=== PATIENT | female | born 1930 | race Caucasian/White ===

== ENCOUNTER 2017-05-10 00:57 | Inpatient (IN) | payer MEDICARE, BC ==
[2017-05-10] VITALS (7 sets, daily range): BP systolic 98–126; BP diastolic 65–77; PULSE 72–81; RESP 16–18; TEMP 95.7–98.1; O2SAT 94–98
[~2017-05-10] VITALS: Ht 162.6 cm; Wt 60.0 kg
[~2017-05-10 00:57] MED LIST: CART240C PO; JANT2TAB PO; LEVO50TA4 PO; METO25TA3 PO; PROP225T PO
[2017-05-10] MEDS ORDERED: SODIUM CHLORIDE 0.9% FLUSH 10 ML FLUSH IVF PRN (01:15)
[2017-05-10] MEDS ORDERED: MORPHINE SULFATE 4 MG/ML INJ IV PUSH ONE (01:15)
--- NOTE | 2017-05-10 02:02 | RADRPT ---
EXAM DATE/TIME: 05/10/2017 01:15 [facility] COMPARISON: No previous studies available for comparison. INDICATIONS : Pt slipped and fell onto right hip. MEDICAL HISTORY : Hypertension. Thyroid disease SURGICAL HISTORY : Cholecystectomy. Hysterectomy. Pacemaker. ENCOUNTER: Initial ACUITY: 1 day PAIN SCORE: 4/10 LOCATION: Bilateral chest FINDINGS: A single view of the chest demonstrates pacer leads overlying right atrium and right ventricle. Minim al basilar scarring. No focal consolidation. No effusion. No pneumothorax. Tortuous aorta. CONCLUSION: 1. Linear scarring or atelectasis in the lungs. No infiltrate or effusion. Alexandr Guzman MD on May 10, 2017 at 1:57 Board Certified Radiologist. This report was verified electronically.
--- NOTE | 2017-05-10 02:03 | RADRPT ---
EXAM DATE/TIME: 05/10/2017 01:15 [facility] COMPARISON: No previous studies available for comparison. INDICATIONS : Pt slipped and fell onto right hip. MEDICAL HISTORY : Hypertension. Thyroid disease SURGICAL HISTORY : Cholecystectomy. Hysterectomy. Pacemaker. ENCOUNTER: Initial ACUITY: 1 day PAIN SCORE: 9/10 LOCATION: Right Hip FINDINGS: Examination of the right hip was performed with AP Pelvis. There is a mildly displaced intertrochante yury fracture of proximal right femur. Osteopenia. 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 CONCLUSION: 1. Mildly displaced intertrochanteric fracture proximal right femur. Alexandr Guzman MD on May 10, 2017 at 2:01 Board Certified Radiologist. This report was verified electronically.
[2017-05-10] MEDS ORDERED: DILT-64 PO (02:06)
[2017-05-10] MEDS ORDERED: ESCI5TAB PO (02:06)
[2017-05-10 02:12] LABS: AUTOMATED NEUTROPHIL # 5.5 TH/MM3 (1.8-7.7); BASOPHIL # 0.1 TH/MM3 (0-0.2); BASOPHIL % 0.8 % (0.0-2.0); EOSINOPHIL # 0.1 TH/MM3 (0-0.4); EOSINOPHIL % 0.8 % (0.0-4.0); HEMATOCRIT 42.9 % (35.0-46.0); HEMO FLAGS DIFF FINAL; LYMPH % 13.9 % (9.0-44.0); MEAN CELL VOLUME 96.4 FL (80.0-100.0); MEAN CORPUSCULAR HEMOGLOBIN 31.5 PG (27.0-34.0); MEAN CORPUSCULAR HGB CONC 32.7 % (32.0-36.0); NEUT % 76.5 % (16.0-70.0); PLATELET COUNT 189 TH/MM3 (150-450); RED BLOOD COUNT 4.45 MIL/MM3 (4.00-5.30); RED CELL DISTRIBUTION WIDTH 14.8 % (11.6-17.2); WHITE BLOOD COUNT 7.2 TH/MM3 (4.0-11.0)
--- NOTE | 2017-05-10 02:15 | PD ---
HPI Chief Complaint: Hip Injury Time Seen by Provider: 01:01 Travel History International Travel<30 days: No Contact w/Intl Traveler<30days: No Traveled to known affect area: No History of Present Illness HPI Thin 87-year-old woman who presents to the emergency department complaining of right hip pain. She states that she slipped and fell lowering her bathroom slippers. She felt her right hip and on her bottom. She has right hip pain. She has pain with any range of motion. Denies hitting her head. No LOC. She does endorse she's on blood thinners. She is a little bit of recent indigestion. She otherwise has been feeling well and healthy. History Past Medical History Narrative Medical Pacer Heart problems Hypothyroidism Also resected dementia A. fib Tetanus Vaccination: < 5 Years Social History Alcohol Use: No Tobacco Use: No Allergies-Medications (Allergen,Severity, Reaction): Coded Allergies: aspirin (Unverified Allergy, Severe, 03/25/17) Reported Meds & Prescriptions Reported Meds & Active Scripts Active Reported Escitalopram (Escitalopram Oxalate) 5 Mg Tab 5 Mg PO DAILY Diltiazem CD 24 HR 240 Mg Caper 240 Mg PO DAILY Levothyroxine (Levothyroxine Sodium) 50 Mcg Tab 50 Mcg PO DAILY Jantoven (Warfarin) 2 Mg Tab 2 Mg PO DAILY Metoprolol Tartrate 25 Mg Tab 25 Mg PO DAILY Propafenone (Propafenone HCl) 225 Mg Tab 225 Mg PO BID Review of Systems Except as stated in HPI: all other systems reviewed are Neg Physical Exam Narrative GENERAL: Generally well-appearing 87 year-old woman, no acute distress. SKIN: Focused skin assessment warm/dry. HEAD: Atraumatic. Normocephalic. EYES: Pupils equal and round. No scleral icterus. No injection or drainage. ENT: No nasal bleeding or discharge. Mucous membranes pink and moist. NECK: Trachea midline. No JVD. CARDIOVASCULAR: Regular rate and rhythm. No murmur appreciated. RESPIRATORY: No accessory muscle use. Clear to auscultation. Breath sounds equal bilaterally. GASTROINTESTINAL: Abdomen soft, non-tender, nondistended. Hepatic and splenic margins not palpable. MUSCULOSKELETAL: Right leg is shortened and internally rotated. Pain with any range of motion. Pulses intact with intact sensation. NEUROLOGICAL: Awake and alert. No obvious cranial nerve deficits. Motor grossly within normal limits. Normal speech. Data Data Last Documented VS Vital Signs Date Time Temp Pulse Resp B/P (MAP) Pulse Ox O2 Delivery O2 Flow Rate FiO2 05/10/17 01:58 16 05/10/17 01:58 98 Room Air 05/10/17 01:00 98.1 73 106/68 (81) Orders Orders Electrocardiogram (05/10/17 01:06) Complete Blood Count With Diff (05/10/17 01:06) Comprehensive Metabolic Panel (05/10/17 01:06) Prothrombin Time / Inr (Pt) (05/10/17 01:06) Act Partial Throm Time (Ptt) (05/10/17 01:06) Urinalysis - C+S If Indicated (05/10/17 01:06) Type And Screen (05/10/17 01:06) Chest, Single Ap (05/10/17 01:06) Hip, Uni(Ap&Lat) W Ap Pelvis (05/10/17 01:06) Iv Access Insert/Monitor (05/10/17 01:06) Oximetry (05/10/17 01:06) Ecg Monitoring (05/10/17 01:06) Morphine Inj (Morphine Inj) (05/10/17 01:15) Sodium Chloride 0.9% Flush (Ns Flush) (05/10/17 01:15) Diet Npo (05/10/17 Breakfast) Admit Order (Ed Use Only) (05/10/17 ) Consult Orthopedic (05/10/17 ) Labs Laboratory Tests Test 05/10/17 01:55 White Blood Count 7.2 TH/MM3 Red Blood Count 4.45 MIL/MM3 Hemoglobin 14.0 GM/DL Hematocrit 42.9 % Mean Corpuscular Volume 96.4 FL Mean Corpuscular Hemoglobin 31.5 PG Mean Corpuscular Hemoglobin Concent 32.7 % Red Cell Distribution Width 14.8 % Platelet Count 189 TH/MM3 Mean Platelet Volume 8.0 FL Neutrophils (%) (Auto) 76.5 % Lymphocytes (%) (Auto) 13.9 % Monocytes (%) (Auto) 8.0 % Eosinophils (%) (Auto) 0.8 % Basophils (%) (Auto) 0.8 % Neutrophils # (Auto) 5.5 TH/MM3 Lymphocytes # (Auto) 1.0 TH/MM3 Monocytes # (Auto) 0.6 TH/MM3 Eosinophils # (Auto) 0.1 TH/MM3 Basophils # (Auto) 0.1 TH/MM3 CBC Comment DIFF FINAL Differential Comment Prothrombin Time 22.2 SEC Prothromb Time International Ratio 2.0 RATIO Activated Partial Thromboplast Time 28.8 SEC Blood Urea Nitrogen 24 MG/DL Creatinine 1.01 MG/DL Random Glucose 117 MG/DL Total Protein 6.2 GM/DL Albumin 3.2 GM/DL Calcium Level 8.4 MG/DL Alkaline Phosphatase 69 U/L Aspartate Amino Transf (AST/SGOT) 15 U/L Alanine Aminotransferase (ALT/SGPT) 25 U/L Total Bilirubin 0.3 MG/DL Sodium Level 142 MEQ/L Potassium Level 4.3 MEQ/L Chloride Level 108 MEQ/L Carbon Dioxide Level 30.2 MEQ/L Anion Gap 4 MEQ/L Estimat Glomerular Filtration Rate 52 ML/MIN [facility] Medical Decision Making Medical Screen Exam Complete: Yes Emergency Medical Condition: Yes Interpretation(s) LABS: CBC is unremarkable. CMP generally unremarkable, mildly elevated BUN/creatinine Coags remarkable for INR 2.0 Chest x-ray: Linear scarring or atelectasis in the lungs. No infiltrate or effusion. Right hip x-ray: Mildly displaced intertrochanteric fracture proximal right femur. Differential Diagnosis Right hip injury, right hip fracture, pelvic fracture, occult injury, other Narrative Course Medical decision making 87 year-old woman with slip and fall clinically of right hip fracture. Looks well. Denies any or head. Is probably on blood thinners. We'll check labs, x- ray, reassess. Diagnosis Primary Impression: Fracture of hip, right, closed Admitting Information Admitting Physician Requests: Admit Remy North MD May 10, 2017 02:15
[2017-05-10 02:27] LABS: APTT (PATIENT) 28.8 SEC (24.3-30.1); PROTHROMBIN TIME - PATIENT 22.2 SEC (9.8-11.6)
[2017-05-10 02:35] LABS: ALT (GPT) 25 U/L (10-53); ANION GAP 4 MEQ/L (5-15); AST (GOT) 15 U/L (15-37); BICARBONATE 30.2 MEQ/L (21.0-32.0); BLOOD UREA NITROGEN 24 MG/DL (7-18); CHLORIDE 108 MEQ/L (98-107); GLOMERULAR FILTRATION RATE 52 ML/MIN (>89); POTASSIUM 4.3 MEQ/L (3.5-5.1); SODIUM (NA) 142 MEQ/L (136-145)
[2017-05-10 02:38] LABS: ALKALINE PHOSPHATASE 69 U/L (45-117); TOTAL BILIRUBIN ADULT 0.3 MG/DL (0.2-1.0)
[2017-05-10] MEDS ORDERED: SODIUM CHLOR 0.9% 1000 ML INJ 1,000 ML IV SCH (03:14)
[2017-05-10] MEDS ORDERED: ACETAMINOPHEN/HYDROcodone 325 MG/5 MG TAB PO PRN (03:15)
[2017-05-10] MEDS ORDERED: LACTULOSE SYRUP 20 GM/30 ML CUP PO PRN (03:15)
[2017-05-10] MEDS ORDERED: SENNOSIDES 8.6 MG TAB PO PRN (03:15)
[2017-05-10] MEDS ORDERED: MAGNESIUM HYDROXIDE SUSP 30 ML CUP PO PRN (03:15)
[2017-05-10] MEDS ORDERED: BISACODYL 10 MG SUPP RECTAL PRN (03:15)
[2017-05-10] MEDS ORDERED: MORPHINE SULFATE 4 MG/ML INJ IV PUSH PRN (03:15)
[2017-05-10] MEDS ORDERED: SODIUM CHLORIDE 0.9% FLUSH 10 ML FLUSH IV FLUSH PRN (03:15)
[2017-05-10] MEDS ORDERED: ACETAMINOPHEN 325 MG TAB PO PRN (03:15)
[2017-05-10] MEDS ORDERED: ONDANSETRON HCL 4 MG/2 ML VIAL IVP PRN (03:15)
--- NOTE | 2017-05-10 03:33 | HHI.HP ---
[facility] Service [facility] Primary Care Physician Dayron Ureña M.D. Admission Diagnosis right hip fracture Diagnoses: (1) Fall Diagnosis: Principal (2) Hip fracture, right Diagnosis: Principal (3) Renal insufficiency Diagnosis: Principal (4) A-fib Diagnosis: Principal Travel History International Travel<30 Days: No Contact w/Intl Traveler <30 Da: No Traveled to Known Affected Are: No History of Present Illness This is an 87-year-old female with a PMH of HTN, A. fib on Coumadin, Hypothyroidism and Dementia who is brought to the ER by EMS secondary to complaints of right hip pain after fall. Per patient, she tripped while walking in her slippers, fell onto right buttock and had immediate complaints of right hip pain. Unable to stand due to pain. No LOC or head trauma. On arrival, BP 106/68, HR 73, O2 sat 97% on RA, Afebrile. CBC essentially unremarkable. Cranney 1.01, no previous labs for comparison. INR 2.0. CXR with no acute findings. Hip X-ray with mildly displaced intertrochanteric fracture proximal right femur. Review of Systems Except as stated in HPI: all other systems reviewed are Neg ROS: 14 point review of systems otherwise negative. Past Family Social History Past Medical History PMH: HTN, A. fib on Coumadin, Hypothyroidism and Dementia Past Surgical History PAST SURGICAL HISTORY: Cholecystectomy, Hysterectomy Allergies: Coded Allergies: aspirin (Unverified Allergy, Severe, 03/25/17) Family History PAST FAMILY HISTORY: Reviewed. No h/o DM or CAD Social History PAST SOCIAL HISTORY: Negative for alcohol, tobacco or drugs. Physical Exam Vital Signs Vital Signs Date Time Temp Pulse Resp B/P (MAP) Pulse Ox O2 Delivery O2 Flow Rate FiO2 05/10/17 01:58 16 05/10/17 01:58 16 98 Room Air 05/10/17 01:00 98.1 73 16 106/68 (81) 97 Physical Exam PE: GENERAL: Pleasant elderly white female in no acute distress. HEENT: PERRLA, EOMI. No scleral icterus or conjunctival pallor. No lid lag or facial droop. CARDIOVASCULAR: Regular rate and rhythm. No obvious murmurs to auscultation. No chest tenderness to palpation. RESPIRATORY: No obvious rhonchi or wheezing. Clear to auscultation. Breath sounds equal bilaterally. GASTROINTESTINAL: Abdomen soft, non-tender, nondistended. BS normal. MUSCULOSKELETAL: Extremities without clubbing, cyanosis, or edema. No obvious deformities. Decreased ROM of RLE due to injury. Pulses intact. NEUROLOGICAL: Awake, alert and oriented x4. No focal neurologic deficits. Moving both upper and lower extremities spontaneously. Laboratory Laboratory Tests Test 05/10/17 01:55 White Blood Count 7.2 Red Blood Count 4.45 Hemoglobin 14.0 Hematocrit 42.9 Mean Corpuscular Volume 96.4 Mean Corpuscular Hemoglobin 31.5 Mean Corpuscular Hemoglobin Concent 32.7 Red Cell Distribution Width 14.8 Platelet Count 189 Mean Platelet Volume 8.0 Neutrophils (%) (Auto) 76.5 Lymphocytes (%) (Auto) 13.9 Monocytes (%) (Auto) 8.0 Eosinophils (%) (Auto) 0.8 Basophils (%) (Auto) 0.8 Neutrophils # (Auto) 5.5 Lymphocytes # (Auto) 1.0 Monocytes # (Auto) 0.6 Eosinophils # (Auto) 0.1 Basophils # (Auto) 0.1 CBC Comment DIFF FINAL Differential Comment Prothrombin Time 22.2 Prothromb Time International Ratio 2.0 Activated Partial Thromboplast Time 28.8 Blood Urea Nitrogen 24 Creatinine 1.01 Random Glucose 117 Total Protein 6.2 Albumin 3.2 Calcium Level 8.4 Alkaline Phosphatase 69 Aspartate Amino Transf (AST/SGOT) 15 Alanine Aminotransferase (ALT/SGPT) 25 Total Bilirubin 0.3 Sodium Level 142 Potassium Level 4.3 Chloride Level 108 Carbon Dioxide Level 30.2 Anion Gap 4 Estimat Glomerular Filtration Rate 52 Result Diagram: 05/10/1715405/10/17154 Caprini VTE Risk Assessment Caprini VTE Risk Assessment: Mod/High Risk (score >= 2) Caprini Risk Assessment Model Point Value = 1 Point Value = 2 Point Value = 3 Point Value = 5 Age 41-60 Minor surgery BMI > 25 kg/m2 Swollen legs Varicose veins or History of unexplained or recurrent spontaneous Oral contraceptives or hormone replacement Sepsis (< 1 month) Serious lung disease, including pneumonia (< 1 month) Abnormal pulmonary function Acute myocardial infarction Congestive heart failure (< 1 month) History of inflammatory bowel disease Medical patient at bed rest Age 61-74 Arthroscopic surgery Major open surgery (> 45 min) Laparoscopic surgery (> 45 min) Malignancy Confined to bed (> 72 hours) Immobilizing plaster cast Central venous access Age >= 75 History of VTE Family history of VTE Factor V Leiden Prothrombin [id number] Lupus anticoagulant Anticardiolipin antibodies Elevated serum homocysteine Heparin-induced thrombocytopenia Other congenital or acquired thrombophilia Stroke (< 1 month) Elective arthroplasty Hip, pelvis, or leg fracture Acute spinal cord injury (< 1 month) Prophylaxis Regimen Total Risk Factor Score Risk Level Prophylaxis Regimen 0-1 Low Early ambulation 2 Moderate Order ONE of the following: *Sequential Compression Device (SCD) *Heparin 5000 units SQ BID 3-4 Higher Order ONE of the following medications: *Heparin 5000 units SQ TID *Enoxaparin/Lovenox 40 mg SQ daily (WT < 150 kg, CrCl > 30 mL/min) *Enoxaparin/Lovenox 30 mg SQ daily (WT < 150 kg, CrCl > 10-29 mL/min) *Enoxaparin/Lovenox 30 mg SQ BID (WT < 150 kg, CrCl > 30 mL/min) AND/OR *Sequential Compression Device (SCD) 5 or more Highest Order ONE of the following medications: *Heparin 5000 units SQ TID (Preferred with Epidurals) *Enoxaparin/Lovenox 40 mg SQ daily (WT < 150 kg, CrCl > 30 mL/min) *Enoxaparin/Lovenox 30 mg SQ daily (WT < 150 kg, CrCl > 10-29 mL/min) *Enoxaparin/Lovenox 30 mg SQ BID (WT < 150 kg, CrCl > 30 mL/min) AND *Sequential Compression Device (SCD) Assessment and Plan Problem List: (1) Fall ICD Code: W19.XXXA - Unspecified fall, initial encounter (2) Hip fracture, right ICD Code: S72.001A - Fracture of unspecified part of neck of right femur, initial encounter for closed fracture (3) Renal insufficiency ICD Code: N28.9 - Disorder of kidney and ureter, unspecified (4) A-fib ICD Code: I48.91 - Unspecified atrial fibrillation Assessment and Plan A/P: 1. Fall: s/p mechanical trip and fall while walking with slippers, no LOC or head trauma reported. 2. Right Hip Fx: secondary to above. Hip X-ray w/ mildly displaced intertrochanteric fracture proximal right femur, images reviewed by me. Ortho consult placed. NPO, IVF, analgesics/antiemetics as needed. 3. Renal Insufficiency: Creatinine 1.01, no previous labs for comparison. IVF , repeat labs in am. 4. A-fib: Chronic. On Coumadin. INR therapeutic at 2.0. Hold Coumadin for surgical intervention, repeat INR. Resume home Propafenone/Metoprolol/Diltiazem 5. DVT Prophylaxis: Resume anticoagulation post op 6. Social work for d/c planning as needed. 7. Case discussed w/ ER physician at length. Physician Certification 2 Midnight Certification Type: Admission for Inpatient Services Order for Inpatient Services The services are ordered in accordance with Medicare regulations or non- Medicare payer requirements, as applicable. In the case of services not specified as inpatient-only, they are appropriately provided as inpatient services in accordance with the 2-midnight benchmark. Estimated LOS (days): 2 days is the estimated time the patient will need to remain in the hospital, assuming treatment plan goals are met and no additional complications. Post-Hospital Plan: Not yet determined Yvette Melgar MD May 10, 2017 03:33
[2017-05-10] MEDS: LEVOTHYROXINE SODIUM 50 MCG TAB PO SCH (05:01)
[2017-05-10] MEDS ORDERED: LACTATED RINGER'S 1000 ML IV PRN (05:15)
[2017-05-10] MEDS ORDERED: POVIDONE IODINE 5% (ANTISEPSIS KIT) 4 APPLICATIONS EACH NARE PRN (05:15)
[2017-05-10] MEDS ORDERED: SODIUM CHLORID 0.9% 500 ML IV PRN (05:15)
[2017-05-10] MEDS ORDERED: CHLORHEXIDINE GLUCONATE 2 % 1 PACK (2 CLOTHS) TOPICAL PRN (05:15)
[2017-05-10] MEDS ORDERED: INSULIN HUMAN REGULAR 1,000 UNITS/10 ML VIAL SQ PRN (05:15)
--- NOTE | 2017-05-10 08:21 | EKG ---
Date Performed: 05/10/2017 Time Performed: 03:46:29 PTAGE: 87 years EKG: POSSIBLE ATRIAL PACED RHYTHM WITH LONG AV DELAY BORDERLINE RIGHT AXIS DEVIATION LOW QRS VOL TAGE INCOMPLETE RIGHT BUNDLE BRANCH BLOCK NONSPECIFIC T-WAVE ABNORMALITY ABNORMAL ECG PREVIOUS TRACING : 07/02/2016 09.08 No significant change from previous tracing noted. DOCTOR: Ruddy Palacios Interpretating Date/Time 05/10/2017 08:19:31
[2017-05-10] MEDS: METOPROLOL TARTRATE 25 MG TAB PO SCH (09:00)
[2017-05-10] MEDS: PROPAFENONE HCL 150 MG TAB PO SCH ×2 (09:00→22:02)
[2017-05-10] MEDS: ESCITALOPRAM OXALATE 10 MG TAB PO SCH (09:00)
[2017-05-10] MEDS: DOCUSATE SODIUM 50 MG/SENNA 8.6 MG TAB PO SCH ×2 (09:00→22:02)
[2017-05-10] MEDS: DILTIAZEM-CD 240 MG CAP ER PO SCH (09:00)
[2017-05-10] MEDS: SODIUM CHLORIDE 0.9% FLUSH 10 ML FLUSH IV FLUSH SCH ×2 (09:00→22:02)
[2017-05-10] MEDS ORDERED: RESP: ALBUTEROL 2.5 MG/3 ML NEB (PRN) ONE (11:02)
[2017-05-10] MEDS ORDERED: ACETAMINOPHEN 1000 MG/100 ML 0 ML IV ONE (11:20)
[2017-05-10] MEDS ORDERED: GENTAMICIN SULFATE 80 MG/2 ML VIAL ONE (11:36)
[2017-05-10] MEDS ORDERED: ceFAZolin 2 GM PREMIX 50 ML ONE (11:36)
[2017-05-10] MEDS ORDERED: ePHEDrine/NS 25 MG/5 ML SYR IV ONE (12:00)
[2017-05-10] MEDS ORDERED: LIDOCAINE HCL 1% PF 5 ML AMPULE OTHER ONE (12:00)
[2017-05-10] MEDS ORDERED: PROPOFOL 200 MG/20 ML AMP IV ONE (12:00)
[2017-05-10] MEDS ORDERED: PHENYLEPH/NS 1000 MCG/10 ML SYR IV ONE (12:00)
--- NOTE | 2017-05-10 13:19 | RADRPT ---
EXAM DATE/TIME: 05/10/2017 12:48 [facility] COMPARISON: HIP RIGHT (AP&LAT 2/3VWS) W AP PELVIS, May 10, 2017, 1:15. INDICATIONS : ORIF rt hip. MEDICAL HISTORY : None. SURGICAL HISTORY : None. ENCOUNTER: Subsequent ACUITY: 1 day PAIN SCORE: Non-responsive. LOCATION: Right Hip FINDINGS: 4 intraoperative fluoroscopic hold images are submitted. Interval intertrochanteric and intramedullar y heriberto fixation of left hip with intertrochanteric fracture. There is near-anatomic alignment with wel l-positioned hardware. No additional new significant fractures. CONCLUSION: 1. Interval right hip ORIF, as above. Larry Dudley MD on May 10, 2017 at 13:15 Board Certified Radiologist. This report was verified electronically.
[2017-05-10] MEDS ORDERED: DO NOT ADM ANY ANTICOAGULANT DRUGS PRN (13:24)
[2017-05-10] MEDS ORDERED: NALOXONE HCL 0.4 MG/ML AMP IV PUSH PRN (14:00)
[2017-05-10] MEDS ORDERED: Post-op Orders (for Pharmacy) MISC XX ONE (14:00)
[2017-05-10] MEDS ORDERED: MISCELLANEOUS NURSING INFORMATION XX PRN (14:00)
[2017-05-10] MEDS ORDERED: MISCELLANEOUS PHARMACY INFORMATION XX ONE (14:00)
[2017-05-10] MEDS ORDERED: diphenhydrAMINE HCL 25 MG CAP PO PRN (14:00)
[2017-05-10] MEDS ORDERED: HYDROmorphone HCL PCA 6 MG/30 ML IV SCH (14:00)
--- NOTE | 2017-05-10 14:02 | PD.OP ---
Operative Report Date of Surgery: May 10, 2017 Preoperative Diagnosis: (1) Fracture of hip, right, closed Postoperative Diagnosis: (1) Intertrochanteric fracture of right femur Procedure: Right Femur Open Reduction Internal Fixation of Intertrochanteric Nail Surgeon: Dr. Marco A Morley Broadcast Maintenance Technician(s): ALICIA Jean Operation and Findings: See Dictation Rick Hughes May 10, 2017 14:02
[2017-05-10] MEDS: DEXT 5%-NACL 0.45% 1000 ML INJ 1,000 ML IV SCH (14:15)
--- NOTE | 2017-05-10 14:15 | MB ---
cc: DENIA ZHANG DATE OF CONSULTATION 05/10/17 REASON FOR CONSULTATION Requested to evaluate right hip intertrochanteric fracture. HISTORY OF PRESENT ILLNESS Idalmis Patel is an 87-year-old female who lives with her son and sustained a fall yesterday and injured her right hip. She was brought to [facility] where she was diagnosed with intertrochanteric fracture involving the right hip. She was admitted to medical service, a consultation placed with the undersigned. PAST MEDICAL HISTORY The patient's past medical history is significant for atrial fibrillation for which she takes Coumadin. She has hypothyroidism, hypertension and is reported to have dementia but she communicates quite well on today's examination. The patient had INR woodworking shop hand which showed INR 2.0. PAST SURGICAL HISTORY Her past surgical history is significant for cholecystectomy, hysterectomy. ALLERGIES SHE HAS ALLERGY TO ASPIRIN. SOCIAL HISTORY She denies alcohol, tobacco and drugs. She lives with her son who is at the bedside. PHYSICAL EXAMINATION GENERAL: The patient is alert, oriented, appropriate, has a good understanding of her condition and asked appropriate questions. Her son reports that she normally ambulates with the use of a walker. DIRECTED EXAMINATION: The patient has swelling and tenderness to palpation about the right hip. No ecchymosis noted. No significant effusion on her knee. Her calves are soft. Noy sign is negative. Her distal pulses 2+. Her distal motor, sensory neurologic examination is intact. The left lower extremity and bilateral upper extremity examination is benign. IMAGING STUDIES X-rays were reviewed which show comminuted right hip intertrochanteric fracture. ASSESSMENT Right hip comminuted intertrochanteric fracture. MEDICAL DECISION MAKING Her condition was discussed. The options of treatment were discussed. The recommendation surgical repair including discussion risk of bleeding, blood loss, need for blood transfusion, the risk of nerve damage, the risk of infection, anesthetic complications, medical complication, unforeseen possible complications. We then went on to discuss the option of timing of the surgery. Current INR is 2.0 so we talked about doing the surgery now versus doing the surgery tomorrow. The advantage of doing the surgery now is that if we stabilize the bone then it allows the clotting to be more effective and we should be able to begin to mobilize her and this should help control her pain as well. We talked about this alternative or waiting a day or two until her INR was a little bit lower. She and her son asked appropriate questions. All of their questions were answered. Informed consent was obtained and they do wish to proceed with the surgery today. All questions answered. MD NITHYA Brooks/ARTURO /10:23 AM /1:58 PM
[2017-05-10] MEDS: PCA - TOTAL MG DILAUDID DELIVERED PER SHIFT OTHER SCH ×2 (15:00→22:00)
--- NOTE | 2017-05-10 21:59 | MP ---
cc: DENIA ZHANG DATE OF SURGERY 05/10/17 PREOPERATIVE DIAGNOSIS Right hip intertrochanteric fracture. POSTOPERATIVE DIAGNOSIS Right hip intertrochanteric fracture. PROCEDURE Right hip open reduction internal fixation using short trochanteric nail ANESTHESIA General SURGEON Jorge Zhang MD DISHWASHER BUSSER SURGEON ALICIA Liz ESTIMATED BLOOD LOSS 100 mL DRAINS None SPECIMEN None. COMPLICATIONS None known. Idalmis Patel is an 87 year old female who nonsustained a fall And fractured the right hip. She is indicated for surgical repair. Risks and benefits thoroughly discussed with the patient's son. Informed consent was obtained. The first calender worker Rick Ellen is advanced registered nurse practitioner. His skill set was medically necessary for the performance of the operation. PROCEDURE IN DETAIL She was placed under general anesthetic. She was placed on a well-padded fracture table. The right hip has significant arthritis and, therefore, was placed straight and lowered and well-padded and fixated at this position and the right hip was evaluated fluoroscopically and traction and rotation used to align the fracture site and we proceeded to prep and drape in usual sterile fashion. IV antibiotics were given. Time-out was completed. We proceeded with incision superior trochanter, tied to the tip of the trochanter, good positioning AP and lateral plane then proceeded to over ream this and then our selected nail 11 mm x 130 was then applied into position. We did notice on the lateral view some flexion of fracture site and accessory portal was made so that we used a ball point pressure to help with the overall reduction and help us while we proceeded with the operation and proceeded with the proximal locking jig and guide pin, reaming. Proceeded to place our flange nail with excellent fixation. Then proceeded with placing our distal locking screw, hard copy AP and lateral radiographs showed the final result. We irrigated out with copious amounts of irrigation. Proceed to close in layers of absorbable sutures, subcuticular on the skin. Steri-Strips applied. Sterile dressing applied. The patient was awaken and returned to recovery room in stable condition. MD NITHYA Brooks/ /2:15 PM /9:45 PM
[2017-05-11 00:01] VITALS: BP 126/69; PULSE 76; RESP 16; TEMP 99.6; O2SAT 95
[2017-05-11] MEDS: DEXT 5%-NACL 0.45% 1000 ML INJ 1,000 ML IV SCH ×2 (00:36→12:05)
[2017-05-11 04:00] VITALS: BP 109/63; PULSE 74; RESP 16; TEMP 99; O2SAT 95
[2017-05-11 05:27] LABS: AUTOMATED NEUTROPHIL # 5.1 TH/MM3 (1.8-7.7); BASOPHIL % 0.6 % (0.0-2.0); EOSINOPHIL % 0.5 % (0.0-4.0); HEMATOCRIT 31.9 % (35.0-46.0); HEMO FLAGS DIFF FINAL; LYMPH % 14.7 % (9.0-44.0); MEAN CELL VOLUME 96.4 FL (80.0-100.0); MEAN CORPUSCULAR HEMOGLOBIN 31.4 PG (27.0-34.0); MEAN CORPUSCULAR HGB CONC 32.5 % (32.0-36.0); MONO % 13.1 % (0.0-8.0); NEUT % 71.1 % (16.0-70.0); PLATELET COUNT 158 TH/MM3 (150-450); RED BLOOD COUNT 3.31 MIL/MM3 (4.00-5.30); RED CELL DISTRIBUTION WIDTH 14.5 % (11.6-17.2); WHITE BLOOD COUNT 7.1 TH/MM3 (4.0-11.0)
[2017-05-11 05:38] LABS: PROTHROMBIN TIME - PATIENT 34.5 SEC (9.8-11.6)
[2017-05-11] MEDS: LEVOTHYROXINE SODIUM 50 MCG TAB PO SCH (05:44)
[2017-05-11] MEDS: PCA - TOTAL MG DILAUDID DELIVERED PER SHIFT OTHER SCH ×3 (06:00→22:00)
[2017-05-11 06:06] LABS: BICARBONATE 25.4 MEQ/L (21.0-32.0); CALCIUM-PROTEIN CORRECTED 8.6 MG/DL (8.5-10.1); POTASSIUM 3.8 MEQ/L (3.5-5.1); TOTAL BILIRUBIN ADULT 0.5 MG/DL (0.2-1.0)
[2017-05-11 08:00] VITALS: BP 109/62; PULSE 73; RESP 18; TEMP 98.3; O2SAT 94
[2017-05-11] MEDS: METOPROLOL TARTRATE 25 MG TAB PO SCH (09:00)
[2017-05-11] MEDS: PROPAFENONE HCL 150 MG TAB PO SCH ×2 (09:00→21:00)
[2017-05-11] MEDS: SODIUM CHLORIDE 0.9% FLUSH 10 ML FLUSH IV FLUSH SCH ×2 (09:00→21:00)
[2017-05-11] MEDS: ESCITALOPRAM OXALATE 10 MG TAB PO SCH (09:00)
[2017-05-11] MEDS: DILTIAZEM-CD 240 MG CAP ER PO SCH (09:00)
[2017-05-11] MEDS: DOCUSATE SODIUM 50 MG/SENNA 8.6 MG TAB PO SCH ×2 (09:00→21:00)
--- NOTE | 2017-05-11 10:16 | PD.ORT.PN ---
Subjective Subjective Remarks Pain comfortable. Pain controlled. Family at bedside. OOB sitting in recliner. Objective Vitals Vital Signs Date Time Temp Pulse Resp B/P (MAP) Pulse Ox O2 Delivery O2 Flow Rate FiO2 05/11/17 08:00 98.3 73 18 109/62 (78) 94 05/11/17 06:00 16 05/11/17 04:00 99.0 74 16 109/63 (78) 95 05/11/17 00:01 99.6 76 16 126/69 (88) 95 05/10/17 22:00 18 05/10/17 20:02 97.4 75 16 123/77 (92) 95 05/10/17 20:00 18 05/10/17 16:00 95.7 81 18 126/72 (90) 95 05/10/17 15:25 15 05/10/17 13:24 97.4 75 14 141/77 (98) 100 Nasal Cannula 4 I/O 05/10/17 05/10/17 05/10/17 05/11/17 05/11/17 05/11/17 07:00 15:00 23:00 07:00 15:00 23:00 Intake Total 0 ml 640 ml 767 ml 1200 ml Output Total 150 ml 250 ml 250 ml Balance 0 ml 490 ml 517 ml 950 ml Intake Oral 0 ml 240 ml 240 ml 0 ml IV Total 400 ml 527 ml 1200 ml Output Urine Total 150 ml 250 ml 250 ml # Voids 0 # Bowel Movements 0 0 0 Result Diagram: 05/11/17 0345 05/11/17 0345 Other Results Laboratory Tests Test 05/11/17 03:45 Prothromb Time International Ratio 3.0 RATIO Prothrombin Time 34.5 SEC (9.8-11.6) Procedures Right Femur Open Reduction Internal Fixation of Intertrochanteric Nail Objective Remarks Right hip dressings C/D/I thigh swelling calves soft negative Noy's NVI Assessment & Plan Assessment and Plan POD #1 Right Femur Open Reduction Internal Fixation of Intertrochanteric Nail Medical management Pain management - ATOMIC WELDER DVT prophylaxis - Lovenox No touch dressing Physical therapy - weight bearing as tolerated D/C planning - anticipating SNF Monitor Rick Hughes May 11, 2017 10:15
[2017-05-11] MEDS ORDERED: ENOXAPARIN SODIUM 40 MG/0.4 ML SYRINGE SQ SCH (12:00)
[2017-05-11] MEDS: ACETAMINOPHEN/HYDROcodone 325 MG/5 MG TAB PO PRN ×2 (12:04→17:18)
--- NOTE | 2017-05-11 13:50 | HHI.PR ---
Subjective Remarks The patient denies chest pain or shortness of breath. Pain seems to be controlled. The patient is somnolent. Vital signs stable Objective Vitals Vital Signs Date Time Temp Pulse Resp B/P (MAP) Pulse Ox O2 Delivery O2 Flow Rate FiO2 05/11/17 08:00 98.3 73 18 109/62 (78) 94 05/11/17 06:00 16 05/11/17 04:00 99.0 74 16 109/63 (78) 95 05/11/17 00:01 99.6 76 16 126/69 (88) 95 05/10/17 22:00 18 05/10/17 20:02 97.4 75 16 123/77 (92) 95 05/10/17 20:00 18 05/10/17 16:00 95.7 81 18 126/72 (90) 95 05/10/17 15:25 15 I/O 05/10/17 05/10/17 05/10/17 05/11/17 05/11/17 05/11/17 07:00 15:00 23:00 07:00 15:00 23:00 Intake Total 0 ml 640 ml 767 ml 1200 ml Output Total 150 ml 250 ml 250 ml Balance 0 ml 490 ml 517 ml 950 ml Intake Oral 0 ml 240 ml 240 ml 0 ml IV Total 400 ml 527 ml 1200 ml Output Urine Total 150 ml 250 ml 250 ml # Voids 0 # Bowel Movements 0 0 0 Result Diagram: 05/11/17 0345 05/11/17344 Imaging Last Impressions Hip and Pelvis X-Ray 05/10/17105 Signed Impressions: Service Date/Time: Wednesday, May 10, 2017 01:15 - CONCLUSION: 1. Mildly displaced intertrochanteric fracture proximal right femur. Alexandr Guzman MD Chest X-Ray 05/10/17105 Signed Impressions: Service Date/Time: Wednesday, May 10, 2017 01:15 - CONCLUSION: 1. Linear scarring or atelectasis in the lungs. No infiltrate or effusion. Alexandr Guzman MD Hip X-Ray 05/10/17 0000 Signed Impressions: Service Date/Time: Wednesday, May 10, 2017 12:48 - CONCLUSION: 1. Interval right hip ORIF, as above. Larry Dudley MD Objective Remarks GENERAL: Pleasant elderly white female in no acute distress, seems somnolent. HEENT: PERRLA, EOMI. No scleral icterus or conjunctival pallor. No lid lag or facial droop. CARDIOVASCULAR: Regular rate and rhythm. No obvious murmurs to auscultation. No chest tenderness to palpation. RESPIRATORY: No obvious rhonchi or wheezing. Clear to auscultation. Breath sounds equal bilaterally. GASTROINTESTINAL: Abdomen soft, non-tender, nondistended. BS normal. MUSCULOSKELETAL: Extremities without clubbing, cyanosis, or edema. No obvious deformities. Decreased ROM of RLE due to injury. Pulses intact. dressing in right thigh is C/D/I, thigh is swollen but here is no erythema or hematoma noted NEUROLOGICAL: Awake, alert and oriented x4. No focal neurologic deficits. Moving both upper and lower extremities spontaneously. Procedures Right hip open reduction internal fixation using short trochanteric nail Medications and IVs Current Medications Medications (Trade) Dose Ordered Sig/Trina Route Start Time Stop Time Status Last Admin (NS Flush) 2 ml UNSCH PRN IV FLUSH 05/10/17 03:15 (NS Flush) 2 ml BID IV FLUSH 05/10/17 09:00 05/11/17 09:00 (Zofran Inj) 4 mg Q6H PRN IVP 05/10/17 03:15 (Morphine Inj) 1 mg Q3H PRN IV PUSH 05/10/17 03:15 05/10/17 08:40 (Albertina-Colace) 1 tab BID PO 05/10/17 09:00 05/11/17 09:00 (Milk Of Magnesia Liq) 30 ml Q12H PRN PO 05/10/17 03:15 (Senokot) 17.2 mg Q12H PRN PO 05/10/17 03:15 (Dulcolax Supp) 10 mg DAILY PRN RECTAL 05/10/17 03:15 (Lactulose Liq) 30 ml DAILY PRN PO 05/10/17 03:15 (Cardizem Cd) 240 mg DAILY PO 05/10/17 09:00 05/11/17 09:00 (Lexapro) 5 mg DAILY PO 05/10/17 09:00 05/11/17 09:00 (Synthroid) 50 mcg DAILY@0700 PO 05/10/17 07:00 05/11/17 05:44 (Lopressor) 25 mg DAILY PO 05/10/17 09:00 05/11/17 09:00 (Rythmol) 225 mg BID PO 05/10/17 09:00 05/11/17 09:00 Lactated Ringer's 1,000 ml @ 30 mls/hr Q24H PRN IV 05/10/17 05:15 05/13/17 05:14 Sodium Chloride 500 ml @ 30 mls/hr [id number] PRN IV 05/10/17 05:15 05/13/17 05:14 (Betadine 5% Antisepsis Kit) 1 applic LETTERPRESS SETTER PRN EACH NARE 05/10/17 05:15 05/13/17 05:14 (Chlorhexidine 2% Cloth) 3 pack LETTERPRESS SETTER PRN TOPICAL 05/10/17 05:15 05/13/17 05:14 (NovoLIN R INJ) See Protocol Table ... LETTERPRESS SETTER PRN SQ 05/10/17 05:15 05/13/17 05:14 Dextrose/Sodium Chloride 1,000 ml @ 100 mls/hr Q10H IV 05/10/17 15:00 05/11/17 12:05 Miscellaneous Information UNSCH PRN XX 05/10/17 14:00 ([place] 5-325 Mg) 1 tab Q4H PRN PO 05/10/17 14:00 05/11/17 12:04 (Benadryl) 25 mg Q6H PRN PO 05/10/17 14:00 (Narcan Inj) 0.4 mg UNSCH PRN IV PUSH 05/10/17 14:00 (Dilaudid BIAZZI NITRATOR OPERATOR Inj) 6 mg UNSCH IV 05/10/17 14:00 05/10/17 15:25 BIAZZI NITRATOR OPERATOR Dosage Infused (Pha) 1 Q8HR OTHER 05/10/17 15:00 05/11/17 06:00 Pharmacy Profile Note 0 ml @ 0 mls/hr UNSCH OTHER 05/11/17 13:15 A/P Problem List: (1) Fall ICD Code: W19.XXXA - Unspecified fall, initial encounter (2) Hip fracture, right ICD Code: S72.001A - Fracture of unspecified part of neck of right femur, initial encounter for closed fracture (3) Renal insufficiency ICD Code: N28.9 - Disorder of kidney and ureter, unspecified (4) A-fib ICD Code: I48.91 - Unspecified atrial fibrillation Assessment and Plan 1. Fall: s/p mechanical trip and fall while walking with slippers, no LOC or head trauma reported. 2. Right Hip Fx: secondary to above. Hip X-ray w/ mildly displaced intertrochanteric fracture proximal right femur, images reviewed by me. Ortho consult placed. NPO, IVF, analgesics/antiemetics as needed. 05/11 the patient is status post operative day one of right femur open reduction internal fixation of intertrochanteric nail. BIAZZI NITRATOR OPERATOR pump for pain management as per orthopedic surgery. 3. Renal Insufficiency: Creatinine 1.01, no previous labs for comparison. IVF , repeat labs in am. 05/11 creatinine is much improved down from 1.01-0.88. 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 A-fib: Chronic. On Coumadin. INR therapeutic at 2.0. Hold Coumadin for surgical intervention, repeat INR. Resume home Propafenone/Metoprolol/Diltiazem 05/11 INR 3.0. Will consult pharmacy to help in dosing. Goal INR is 2-3. 5. DVT Prophylaxis: Patient with a therapeutic INR. Continue Coumadin as per pharmacy recommendations. 6. Anemia: Likely combination of acute postop anemia and due to IV fluid hydration. Continue to monitor CBC, there is no indication for confusion now. 6. Social work for d/c planning as needed. Discharge Planning Continue to monitor in the orthopedic floor. Discharge pending orthopedic surgery clearance. Blayne Staton MD May 11, 2017 13:50
[2017-05-11 16:00] VITALS: BP 111/59; PULSE 70; RESP 18; TEMP 97.3; O2SAT 96
[2017-05-11] MEDS ORDERED: WARFARIN SOD 2 MG TAB PO SCH (16:00)
[2017-05-11 18:10] VITALS: O2SAT 96
[2017-05-11 20:00] VITALS: BP 109/58; PULSE 70; RESP 16; TEMP 97; O2SAT 94
[2017-05-12] VITALS (8 sets, daily range): BP systolic 82–120; BP diastolic 52–63; PULSE 70–73; RESP 16–18; TEMP 97.5–99; O2SAT 92–95
[2017-05-12 01:50] LABS: BLOOD, URINE LARGE (NEG); GLUCOSE,URINE NEG (NEG); KETONE, URINE TRACE mg/dL (NEG); MUCUS URINE FEW /lpf (OCC); NITRITE,URINE NEG (NEG)
[2017-05-12 01:51] LABS: COMMENT (UR) CATH-CULTURE IND; CULTURE IF INDICATED CATH CULTURE IND; URINE COLOR RED (YELLW/STRAW)
[2017-05-12] MEDS: LEVOTHYROXINE SODIUM 50 MCG TAB PO SCH (05:25)
[2017-05-12] MEDS: DEXT 5%-NACL 0.45% 1000 ML INJ 1,000 ML IV SCH (05:25)
[2017-05-12] MEDS: PCA - TOTAL MG DILAUDID DELIVERED PER SHIFT OTHER SCH ×3 (06:00→23:25)
[2017-05-12 07:03] LABS: AUTOMATED NEUTROPHIL # 6.5 TH/MM3 (1.8-7.7); BASOPHIL % 0.6 % (0.0-2.0); EOSINOPHIL % 0.5 % (0.0-4.0); HEMATOCRIT 28.5 % (35.0-46.0); HEMO FLAGS DIFF FINAL; LYMPH % 11.6 % (9.0-44.0); MEAN CELL VOLUME 96.8 FL (80.0-100.0); MEAN CORPUSCULAR HEMOGLOBIN 32.4 PG (27.0-34.0); MEAN CORPUSCULAR HGB CONC 33.5 % (32.0-36.0); MONO % 10.7 % (0.0-8.0); NEUT % 76.6 % (16.0-70.0); PLATELET COUNT 146 TH/MM3 (150-450); RED BLOOD COUNT 2.94 MIL/MM3 (4.00-5.30); RED CELL DISTRIBUTION WIDTH 14.4 % (11.6-17.2); WHITE BLOOD COUNT 8.5 TH/MM3 (4.0-11.0)
[2017-05-12 07:11] LABS: INTERNATIONAL NORMALIZED RATIO 2.6 RATIO; PROTHROMBIN TIME - PATIENT 30.5 SEC (9.8-11.6)
[2017-05-12 07:33] LABS: CALCIUM-PROTEIN CORRECTED 8.5 MG/DL (8.5-10.1); MAGNESIUM 1.9 MG/DL (1.5-2.5); POTASSIUM 3.9 MEQ/L (3.5-5.1); TOTAL BILIRUBIN ADULT 0.7 MG/DL (0.2-1.0)
[2017-05-12] MEDS: ESCITALOPRAM OXALATE 10 MG TAB PO SCH (08:47)
[2017-05-12] MEDS: DOCUSATE SODIUM 50 MG/SENNA 8.6 MG TAB PO SCH ×2 (08:47→23:23)
[2017-05-12] MEDS: DILTIAZEM-CD 240 MG CAP ER PO SCH (08:47)
[2017-05-12] MEDS: METOPROLOL TARTRATE 25 MG TAB PO SCH (08:47)
[2017-05-12] MEDS: PROPAFENONE HCL 150 MG TAB PO SCH ×2 (08:47→23:23)
[2017-05-12] MEDS: SODIUM CHLORIDE 0.9% FLUSH 10 ML FLUSH IV FLUSH SCH ×2 (08:47→23:24)
--- NOTE | 2017-05-12 11:05 | HHI.PR ---
Subjective Remarks Patient states she does not have much pain Son at bedside worried that her mother has not voided yet hemoglobin slightly lower - no reports of bleeding Objective Vitals Vital Signs Date Time Temp Pulse Resp B/P (MAP) Pulse Ox O2 Delivery O2 Flow Rate FiO2 05/12/17 08:00 98.6 73 18 120/61 (80) 93 05/12/17 06:06 18 05/12/17 06:00 18 05/12/17 04:00 97.5 71 16 118/63 (81) 94 05/12/17 00:00 97.9 71 16 108/63 (78) 95 05/12/17 00:00 18 05/11/17 22:00 18 05/11/17 20:00 97.0 70 16 109/58 (75) 94 05/11/17 18:18 18 05/11/17 18:10 96 05/11/17 16:00 97.3 70 18 111/59 (76) 96 05/11/17 14:00 16 I/O 05/11/17 05/11/17 05/11/17 05/12/17 05/12/17 05/12/17 07:00 15:00 23:00 07:00 15:00 23:00 Intake Total 1200 ml 220 ml 985 ml 120 ml Output Total 250 ml 300 ml Balance 950 ml -80 ml 985 ml 120 ml Intake Oral 0 ml 120 ml 120 ml 120 ml IV Total 1200 ml 100 ml 865 ml Output Urine Total 250 ml 300 ml Bladder Scan Volume Amount 178 ml # Voids 0 0 # Bowel Movements 0 0 0 0 Result Diagram: 05/12/17 0548 05/12/17 0548 Imaging Last Impressions Hip and Pelvis X-Ray 05/10/17105 Signed Impressions: Service Date/Time: Wednesday, May 10, 2017 01:15 - CONCLUSION: 1. Mildly displaced intertrochanteric fracture proximal right femur. Alexandr Guzman MD Chest X-Ray 05/10/17105 Signed Impressions: Service Date/Time: Wednesday, May 10, 2017 01:15 - CONCLUSION: 1. Linear scarring or atelectasis in the lungs. No infiltrate or effusion. Alexandr Guzman MD Hip X-Ray 05/10/17 0000 Signed Impressions: Service Date/Time: Saturday, May 10, 2017 12:48 - CONCLUSION: 1. Interval right hip ORIF, as above. Larry Dudley MD Objective Remarks GENERAL: Pleasant elderly white female in no acute distress, awake and alert. HEENT: PERRLA, EOMI. No scleral icterus or conjunctival pallor. No lid lag or facial droop. Hard of hearing. CARDIOVASCULAR: Regular rate and rhythm. No obvious murmurs to auscultation. No chest tenderness to palpation. RESPIRATORY: No obvious rhonchi or wheezing. Clear to auscultation. Breath sounds equal bilaterally. GASTROINTESTINAL: Abdomen soft, non-tender, nondistended. BS normal. Distended urinary bladder up to below the umbilicus. MUSCULOSKELETAL: Extremities without clubbing, cyanosis, or edema. No obvious deformities. Decreased ROM of RLE due to injury. Pulses intact. dressing in right thigh is C/D/I, thigh is swollen but here is no erythema or hematoma noted NEUROLOGICAL: Awake, alert and oriented x4. No focal neurologic deficits. Moving both upper and lower extremities spontaneously. Procedures Right hip open reduction internal fixation using short trochanteric nail Medications and IVs Current Medications Medications (Trade) Dose Ordered Sig/Trina Route Start Time Stop Time Status Last Admin (NS Flush) 2 ml UNSCH PRN IV FLUSH 05/10/17 03:15 (NS Flush) 2 ml BID IV FLUSH 05/10/17 09:00 05/11/17 09:00 (Zofran Inj) 4 mg Q6H PRN IVP 05/10/17 03:15 (Morphine Inj) 1 mg Q3H PRN IV PUSH 05/10/17 03:15 05/10/17 08:40 (Albertina-Colace) 1 tab BID PO 05/10/17 09:00 05/12/17 08:47 (Milk Of Magnesia Liq) 30 ml Q12H PRN PO 05/10/17 03:15 (Senokot) 17.2 mg Q12H PRN PO 05/10/17 03:15 (Dulcolax Supp) 10 mg DAILY PRN RECTAL 05/10/17 03:15 (Lactulose Liq) 30 ml DAILY PRN PO 05/10/17 03:15 (Cardizem Cd) 240 mg DAILY PO 05/10/17 09:00 05/12/17 08:47 (Lexapro) 5 mg DAILY PO 05/10/17 09:00 05/12/17 08:47 (Synthroid) 50 mcg DAILY@0700 PO 05/10/17 07:00 05/12/17 05:25 (Lopressor) 25 mg DAILY PO 05/10/17 09:00 05/12/17 08:47 (Rythmol) 225 mg BID PO 05/10/17 09:00 05/12/17 08:47 Lactated Ringer's 1,000 ml @ 30 mls/hr Q24H PRN IV 05/10/17 05:15 05/13/17 05:14 Sodium Chloride 500 ml @ 30 mls/hr [id number] PRN IV 05/10/17 05:15 05/13/17 05:14 (Betadine 5% Antisepsis Kit) 1 applic PARACHUTE CUSHION INSTALLER PRN EACH NARE 05/10/17 05:15 05/13/17 05:14 (Chlorhexidine 2% Cloth) 3 pack PARACHUTE CUSHION INSTALLER PRN TOPICAL 05/10/17 05:15 05/13/17 05:14 (NovoLIN R INJ) See Protocol Table ... PARACHUTE CUSHION INSTALLER PRN SQ 05/10/17 05:15 05/13/17 05:14 Dextrose/Sodium Chloride 1,000 ml @ 100 mls/hr Q10H IV 05/10/17 15:00 05/12/17 05:25 Miscellaneous Information UNSCH PRN XX 05/10/17 14:00 ([place] 5-325 Mg) 1 tab Q4H PRN PO 05/10/17 14:00 05/11/17 17:18 (Benadryl) 25 mg Q6H PRN PO 05/10/17 14:00 (Narcan Inj) 0.4 mg UNSCH PRN IV PUSH 05/10/17 14:00 (Dilaudid RIVER [employer] LAKES BOATMAN Inj) 6 mg UNSCH IV 05/10/17 14:00 05/10/17 15:25 RIVER [employer] LAKES BOATMAN Dosage Infused (Pha) 1 Q8HR OTHER 05/10/17 15:00 05/12/17 06:00 Pharmacy Profile Note 0 ml @ 0 mls/hr UNSCH OTHER 05/11/17 13:15 (Coumadin) 1 mg DAILY@1600 PO 05/12/17 16:00 Urinary Catheter: No Vascular Central Line Catheter: No A/P Problem List: (1) Fall ICD Code: W19.XXXA - Unspecified fall, initial encounter (2) Hip fracture, right ICD Code: S72.001A - Fracture of unspecified part of neck of right femur, initial encounter for closed fracture (3) Renal insufficiency ICD Code: N28.9 - Disorder of kidney and ureter, unspecified (4) A-fib ICD Code: I48.91 - Unspecified atrial fibrillation Assessment and Plan 1. Fall: s/p mechanical trip and fall while walking with slippers, no LOC or head trauma reported. 2. Right Hip Fx: secondary to above. Hip X-ray w/ mildly displaced intertrochanteric fracture proximal right femur, images reviewed by me. Ortho consult placed. NPO, IVF, analgesics/antiemetics as needed. 05/11 the patient is status post operative day one of right femur open reduction internal fixation of intertrochanteric nail. RIVER AND LAKES BOATMAN pump for pain management as per orthopedic surgery. 05/12 POD #2 - management as per orthopedic surgery - DC IV Fluids. 3. Renal Insufficiency: Creatinine 1.01, no previous labs for comparison. IVF , repeat labs in am. 05/11 creatinine is much improved down from 1.01-0.88. 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 A-fib: Chronic. On Coumadin. INR therapeutic at 2.0. Hold Coumadin for surgical intervention, repeat INR. Resume home Propafenone/Metoprolol/Diltiazem 05/11 INR 3.0. Will consult pharmacy to help in dosing. Goal INR is 2-3. 05/12 INR at therapeutic range of 2.6. Continue to monitor PT/INR. 5. DVT Prophylaxis: Patient with a therapeutic INR. Continue Coumadin as per pharmacy recommendations. 6. Anemia: Likely combination of acute postop anemia and due to IV fluid hydration. Continue to monitor CBC, there is no indication for confusion now. 05/12 hemoglobin trending down but there is no evidence of active bleeding. Will continue to monitor CBC. 7. Urinary retention: Lateral distention on exam. Insert Lópze catheter, start Flomax 0.4 mg by mouth daily, voiding trials in a.m. 6. Social work for d/c planning as needed. Discharge Planning Continue to monitor in the orthopedic floor. Discharge pending orthopedic surgery clearance. Blayne Staton MD May 12, 2017 11:05
[2017-05-12] MEDS ORDERED: RESP: ALBUTEROL 2.5 MG/IPRATROPIUM 0.5 MG NEB (SCH) NEB ONE (11:30)
[2017-05-12] MEDS ORDERED: RESP: ALBUTEROL 2.5 MG/IPRATROPIUM 0.5 MG NEB (PRN) NEB (11:30)
[2017-05-12] MEDS ORDERED: FUROSEMIDE 20 MG TAB PO ONE (11:45)
[2017-05-12] MEDS: RESP: ALBUTEROL 2.5 MG/IPRATROPIUM 0.5 MG NEB (SCH) NEB ×2 (14:00→20:20)
[2017-05-12] MEDS: TAMSULOSIN HCL 0.4 MG CAP PO SCH (14:21)
[2017-05-12] MEDS ORDERED: WARFARIN SOD 1 MG TAB PO SCH (16:00)
--- NOTE | 2017-05-12 16:25 | PD.ORT.PN ---
Subjective Subjective Remarks Patient c/o right hip pain. NAD. Objective Vitals Vital Signs Date Time Temp Pulse Resp B/P (MAP) Pulse Ox O2 Delivery O2 Flow Rate FiO2 05/12/17 11:58 99.0 70 18 95/52 (66) 93 05/12/17 08:00 98.6 73 18 120/61 (80) 93 05/12/17 06:06 18 05/12/17 06:00 18 05/12/17 04:00 97.5 71 16 118/63 (81) 94 05/12/17 00:00 97.9 71 16 108/63 (78) 95 05/12/17 00:00 18 05/11/17 22:00 18 05/11/17 20:00 97.0 70 16 109/58 (75) 94 05/11/17 18:18 18 05/11/17 18:10 96 I/O 05/11/17 05/11/17 05/11/17 05/12/17 05/12/17 05/12/17 07:00 15:00 23:00 07:00 15:00 23:00 Intake Total 1200 ml 220 ml 985 ml 120 ml Output Total 250 ml 300 ml Balance 950 ml -80 ml 985 ml 120 ml Intake Oral 0 ml 120 ml 120 ml 120 ml IV Total 1200 ml 100 ml 865 ml Output Urine Total 250 ml 300 ml Bladder Scan Volume Amount 178 ml # Voids 0 0 # Bowel Movements 0 0 0 0 Result Diagram: 05/12/17 0548 05/12/17 0548 Other Results Laboratory Tests Test 05/12/17 05:48 Prothromb Time International Ratio 2.6 RATIO Prothrombin Time 30.5 SEC (9.8-11.6) Procedures Right Femur Open Reduction Internal Fixation of Intertrochanteric Nail Objective Remarks Right hip dressings C/D/I thigh swelling calves soft negative Noy's NVI Assessment & Plan Assessment and Plan POD #2 Right Femur Open Reduction Internal Fixation of Intertrochanteric Nail Medical management Pain management DVT prophylaxis - Lovenox No touch dressing Physical therapy - weight bearing as tolerated D/C planning - anticipating SNF Monitor Rick Hughes May 12, 2017 16:25
[2017-05-12] MEDS: SODIUM CHLOR 0.9% 1000 ML INJ 1,000 ML IV SCH (16:55)
[2017-05-13] VITALS: BP 86/56; PULSE 69; RESP 18; TEMP 97.8; O2SAT 94
[2017-05-13 04:00] VITALS: BP 102/55; PULSE 72; RESP 18; TEMP 97.8; O2SAT 93
[2017-05-13] MEDS: LEVOTHYROXINE SODIUM 50 MCG TAB PO SCH (05:22)
[2017-05-13] MEDS: SODIUM CHLOR 0.9% 1000 ML INJ 1,000 ML IV SCH ×2 (05:22→13:00)
[2017-05-13] MEDS: PCA - TOTAL MG DILAUDID DELIVERED PER SHIFT OTHER SCH ×2 (06:00→13:12)
--- NOTE | 2017-05-13 07:17 | PD.ORT.PN ---
Subjective Subjective Remarks Patient c/o right hip pain. NAD. Objective Vitals Vital Signs Date Time Temp Pulse Resp B/P (MAP) Pulse Ox O2 Delivery O2 Flow Rate FiO2 05/13/17 06:00 18 05/13/17 04:00 97.8 72 18 102/55 (71) 93 05/13/17 01:14 Room Air 05/13/17 00:00 97.8 69 18 86/56 (66) 94 05/12/17 23:25 17 05/12/17 20:24 92 21 05/12/17 20:00 97.6 71 18 83/53 (63) 94 05/12/17 16:00 97.9 72 18 82/53 (63) 93 05/12/17 11:58 99.0 70 18 95/52 (66) 93 05/12/17 08:00 98.6 73 18 120/61 (80) 93 I/O 05/12/17 05/12/17 05/12/17 05/13/17 05/13/17 05/13/17 07:00 15:00 23:00 07:00 15:00 23:00 Intake Total 120 ml 1324 ml 200 ml Output Total 350 ml 350 ml Balance 120 ml 974 ml -150 ml Intake Oral 120 ml 480 ml 200 ml IV Total 844 ml Output Urine Total 350 ml 350 ml Bladder Scan Volume Amount 178 ml # Voids 0 # Bowel Movements 0 Result Diagram: 05/12/17 0548 05/12/17 0548 Procedures Right Femur Open Reduction Internal Fixation of Intertrochanteric Nail Objective Remarks Right hip dressings C/D/I thigh swelling calves soft negative Noy's NVI Assessment & Plan Assessment and Plan POD #3 Right Femur Open Reduction Internal Fixation of Intertrochanteric Nail Medical management Pain management DVT prophylaxis - Lovenox No touch dressing Physical therapy - weight bearing as tolerated Orthopedically stable for discharge D/C planning - anticipating SNF F/U in [address] Morley or ALICIA in office Rick Hughes May 13, 2017 07:17
[2017-05-13 08:00] VITALS: BP 121/64; PULSE 70; RESP 17; TEMP 98.3; O2SAT 92
[2017-05-13] MEDS: RESP: ALBUTEROL 2.5 MG/IPRATROPIUM 0.5 MG NEB (SCH) NEB ×2 (08:03→12:27)
[2017-05-13 08:14] LABS: INTERNATIONAL NORMALIZED RATIO 2.3 RATIO; PROTHROMBIN TIME - PATIENT 26.1 SEC (9.8-11.6)
[2017-05-13 08:22] LABS: BICARBONATE 23.5 MEQ/L (21.0-32.0); POTASSIUM 3.9 MEQ/L (3.5-5.1)
[2017-05-13 08:30] LABS: HEMATOCRIT 27.1 % (35.0-46.0); MEAN CELL VOLUME 95.3 FL (80.0-100.0); MEAN CORPUSCULAR HEMOGLOBIN 32.6 PG (27.0-34.0); MEAN CORPUSCULAR HGB CONC 34.2 % (32.0-36.0); PLATELET COUNT 135 TH/MM3 (150-450); RED BLOOD COUNT 2.85 MIL/MM3 (4.00-5.30); RED CELL DISTRIBUTION WIDTH 14.1 % (11.6-17.2); REVIEW FLAG FINAL; WHITE BLOOD COUNT 9.5 TH/MM3 (4.0-11.0)
[2017-05-13] MEDS: DOCUSATE SODIUM 50 MG/SENNA 8.6 MG TAB PO SCH (08:48)
[2017-05-13] MEDS: DILTIAZEM-CD 240 MG CAP ER PO SCH (08:48)
[2017-05-13] MEDS: TAMSULOSIN HCL 0.4 MG CAP PO SCH (08:48)
[2017-05-13] MEDS: METOPROLOL TARTRATE 25 MG TAB PO SCH (08:48)
[2017-05-13] MEDS: PROPAFENONE HCL 150 MG TAB PO SCH (08:48)
[2017-05-13] MEDS: SODIUM CHLORIDE 0.9% FLUSH 10 ML FLUSH IV FLUSH SCH (08:49)
[2017-05-13] MEDS: ESCITALOPRAM OXALATE 10 MG TAB PO SCH (08:49)
[2017-05-13] MEDS: ACETAMINOPHEN/HYDROcodone 325 MG/5 MG TAB PO PRN (08:50)
[2017-05-13 12:00] VITALS: BP 80/48; PULSE 71; RESP 17; TEMP 98.2; O2SAT 93
[2017-05-13 12:05] VITALS: BP 90/62
[2017-05-13] MEDS ORDERED: COUM1TAB PO (13:11)
--- NOTE | 2017-05-13 13:12 | HHI.DCPOC ---
Discharge Care Plan Diagnosis: (1) Fracture of hip, right, closed (2) Renal insufficiency (3) A-fib (4) Fall (5) Hip fracture, right (6) Intertrochanteric fracture of right femur Goals to Promote Your Health * To prevent worsening of your condition and complications * To maintain your health at the optimal level Directions to Meet Your Goals Take your medications as prescribed Follow your dietary instruction Follow activity as directed Keep your appointments as scheduled Take your immunizations and boosters as scheduled If your symptoms worsen call your PCP, if no PCP go to Urgent Care Center or Emergency Room Smoking is Dangerous to Your Health. Avoid second hand smoke Call the 24-hour hour crisis hotline for domestic abuse at Blayne Staton MD May 13, 2017 13:12
--- NOTE | 2017-05-13 13:17 | HHI.DS ---
Discharge Summary Admission Date May 10, 2017 at 03:07 Discharge Date: May 13, 2017 Admitting Diagnosis right hip fracture (1) Fall ICD Code: W19.XXXA - Unspecified fall, initial encounter (2) Hip fracture, right ICD Code: S72.001A - Fracture of unspecified part of neck of right femur, initial encounter for closed fracture (3) Renal insufficiency ICD Code: N28.9 - Disorder of kidney and ureter, unspecified (4) A-fib ICD Code: I48.91 - Unspecified atrial fibrillation Procedures Right hip open reduction internal fixation using short trochanteric nail Brief History - From Admission This is an 87-year-old female with a PMH of HTN, A. fib on Coumadin, Hypothyroidism and Dementia who is brought to the ER by EMS secondary to complaints of right hip pain after fall. Per patient, she tripped while walking in her slippers, fell onto right buttock and had immediate complaints of right hip pain. Unable to stand due to pain. No LOC or head trauma. On arrival, BP 106/68, HR 73, O2 sat 97% on RA, Afebrile. CBC essentially unremarkable. [place] 1.01, no previous labs for comparison. INR 2.0. CXR with no acute findings. Hip X-ray with mildly displaced intertrochanteric fracture proximal right femur. CBC/BMP: 05/13/17 0636 05/13/17 0636 Significant Findings Laboratory Tests Test 05/11/17 03:45 05/12/17 01:27 05/12/17 05:48 05/13/17 06:36 Red Blood Count 3.31 MIL/MM3 (4.00-5.30) 2.94 MIL/MM3 (4.00-5.30) 2.85 MIL/MM3 (4.00-5.30) Hemoglobin 10.4 GM/DL (11.6-15.3) 9.5 GM/DL (11.6-15.3) 9.3 GM/DL (11.6-15.3) Hematocrit 31.9 % (35.0-46.0) 28.5 % (35.0-46.0) 27.1 % (35.0-46.0) Neutrophils (%) (Auto) 71.1 % (16.0-70.0) 76.6 % (16.0-70.0) Monocytes (%) (Auto) 13.1 % (0.0-8.0) 10.7 % (0.0-8.0) Prothrombin Time 34.5 SEC (9.8-11.6) 30.5 SEC (9.8-11.6) 26.1 SEC (9.8-11.6) Random Glucose 122 MG/DL (74-106) 107 MG/DL (74-106) Total Protein 4.9 GM/DL (6.4-8.2) 5.2 GM/DL (6.4-8.2) Albumin 2.3 GM/DL (3.4-5.0) 2.3 GM/DL (3.4-5.0) Calcium Level 7.4 MG/DL (8.5-10.1) 7.4 MG/DL (8.5-10.1) 7.7 MG/DL (8.5-10.1) Aspartate Amino Transf (AST/SGOT) 14 U/L (15-37) 11 U/L (15-37) Chloride Level 108 MEQ/L (98-107) Estimat Glomerular Filtration Rate 61 ML/MIN (>89) 71 ML/MIN (>89) 81 ML/MIN (>89) Urine Color RED (YELLW/STRAW) Urine Turbidity HAZY (CLEAR) Urine Protein 100 mg/dL (NEG-TRACE) Urine Ketones TRACE mg/dL (NEG) Urine Occult Blood LARGE (NEG) Urine Leukocyte Esterase SMALL (NEG) Urine WBC 81 /hpf (0-5) Urine Mucus FEW /lpf (OCC) Platelet Count 146 TH/MM3 (150-450) 135 TH/MM3 (150-450) Anion Gap 3 MEQ/L (5-15) Imaging Last Impressions Hip and Pelvis X-Ray 05/10/17105 Signed Impressions: Service Date/Time: Wednesday, May 10, 2017 01:15 - CONCLUSION: 1. Mildly displaced intertrochanteric fracture proximal right femur. Alexandr Guzman MD Chest X-Ray 05/10/17105 Signed Impressions: Service Date/Time: Wednesday, May 10, 2017 01:15 - CONCLUSION: 1. Linear scarring or atelectasis in the lungs. No infiltrate or effusion. Alexandr Guzman MD Hip X-Ray 05/10/17 0000 Signed Impressions: Service Date/Time: Wednesday, May 10, 2017 12:48 - CONCLUSION: 1. Interval right hip ORIF, as above. Larry Dudley MD PE at Discharge GENERAL: Pleasant elderly white female in no acute distress, awake and alert. HEENT: PERRLA, EOMI. No scleral icterus or conjunctival pallor. No lid lag or facial droop. Hard of hearing. CARDIOVASCULAR: Regular rate and rhythm. No obvious murmurs to auscultation. No chest tenderness to palpation. RESPIRATORY: No obvious rhonchi or wheezing. Clear to auscultation. Breath sounds equal bilaterally. GASTROINTESTINAL: Abdomen soft, non-tender, nondistended. BS normal. Distended urinary bladder up to below the umbilicus. MUSCULOSKELETAL: Extremities without clubbing, cyanosis, or edema. No obvious deformities. Decreased ROM of RLE due to injury. Pulses intact. dressing in right thigh is C/D/I, thigh is swollen but here is no erythema or hematoma noted NEUROLOGICAL: Awake, alert and oriented x4. No focal neurologic deficits. Moving both upper and lower extremities spontaneously. Pt update on day of discharge Denies cp/sob. Pain controlled. afebrile. Will remove triana catheter. Son at bedside states left arm swollen and exam confirms this. Will order Left upper extremity ultrasound which could be followed at [facility]'s rehab. Bp dropped earlier after patient got [place], this is likely due to opiates. Blood pressure is trending up and patient is asymptomatic. Will hold antihypertensive medications for now. Pt Condition on Discharge: Stable Discharge Disposition: Rehab Inpatient Discharge Time: > 30 minutes Discharge Instructions DIET: Follow Instructions for: As Tolerated, No Restrictions Activities you can perform: Weight Bearing as Venus Follow up Referrals: Orthopedics - 2 Weeks @ [facility] with Marco A Morley MD New Medications: Warfarin (Coumadin) 1 Mg Tab 1 MG PO DAILY@1600 for Blood Clot Prevention, #30 TAB Continued Medications: Diltiazem CD 24 HR (Diltiazem CD 24 HR) 240 Mg Caper 240 MG PO DAILY, #30 CAP 0 Refills Escitalopram (Escitalopram) 5 Mg Tab 5 MG PO DAILY, #30 TAB 0 Refills Levothyroxine (Levothyroxine) 50 Mcg Tab 50 MCG PO DAILY for Thyroid, #30 TAB 0 Refills Metoprolol Tartrate (Metoprolol Tartrate) 25 Mg Tab 25 MG PO DAILY, #30 TAB 0 Refills Propafenone (Propafenone) 225 Mg Tab 225 MG PO BID for Regulate Heart Beat, #90 TAB 0 Refills Discontinued Medications: Warfarin (Jantoven) 2 Mg Tab 2 MG PO DAILY for Blood Clot Prevention, #30 TAB 0 Refills Blayne Staton MD May 13, 2017 13:17
[2017-05-13] MEDS ORDERED: KETO10 PO (13:19)
[2017-05-13] MEDS ORDERED: DILT-64 PO (13:24)
[2017-05-13] MEDS ORDERED: METO25TA3 PO (13:24)
--- NOTE | 2017-05-13 14:17 | RADRPT ---
EXAM DATE/TIME: 05/13/2017 13:19 [place] COMPARISON: No previous studies available for comparison. INDICATIONS : Left arm swelling. MEDICAL HISTORY : Osteoarthritis. Chronic obstructive pulmonary disease. Hernia, hiatal. Thyroid disease. Blind right e ye. EKUK. Afib. HTN. SURGICAL HISTORY : Pacemaker. Hysterectomy. Cholecystectomy. ENCOUNTER: Initial ACUITY: 2 day PAIN SCORE: 0/10 LOCATION: Left arm. FINDINGS: There is spontaneous flow documented in the brachial, basilic, cephalic, axillary, and subclavian vei ns. The vessels are compressible and augmentation response is documented. No filling defects are se en. The flow is phasic with respiration. Direction of flow in the jugular vein is caudal. CONCLUSION: 1. No evidence of deep venous thrombosis. Alexis Petit MD on May 13, 2017 at 14:16 Board Certified Radiologist. This report was verified electronically.
[2017-05-13] MEDS ORDERED: NORC5TAB PO (14:25)
[2017-05-13 15:35] VITALS: BP 90/62; PULSE 71; RESP 17; TEMP 97.7; O2SAT 92
[2017-05-21] MEDS ORDERED: COMMODE 3-IN-11 MIS (13:32)
[2017-05-21] MEDS ORDERED: WHEEMIS3 (13:32)
[2017-05-22] MEDS ORDERED: FAMO20TA2 PO (12:44)
[2017-05-22] MEDS ORDERED: PROP225T PO (12:44)
[2017-05-22] MEDS ORDERED: IPRASOL NEB (12:44)
[2017-05-22] MEDS ORDERED: FURO40TA PO (12:44)
[2017-05-22] MEDS ORDERED: BETH10 PO (12:44)
[2017-05-22] MEDS ORDERED: LEVO.05 PO (12:44)
[2017-05-22] MEDS ORDERED: ULTR50TA5 PO (12:44)
[2017-05-22] MEDS ORDERED: ESCI5TAB PO (12:44)
[2017-05-22] MEDS ORDERED: DILT-64 PO (12:44)
[2017-05-22] MEDS ORDERED: METO25TA3 PO (12:44)
== END 2017-05-13 15:32 | DRG 482 ==
LOC: NEPE 00:57 → NEDA 03:07 → N06A 04:32
PROVIDERS: ADMIT Hospitalist; ATTEND Hospitalist
PROC: 0QS604Z Reposition Right Upper Femur with Internal Fixation Device, Open Approach (ICD-10-PCS; principal; 2017-05-10 11:29)
DX: S72.141A Displaced intertrochanteric fracture of right femur, initial encounter for closed fracture (principal); F03.90 Unspecified dementia, unspecified severity, without behavioral disturbance, psychotic disturbance, mood disturbance, and anxiety; I48.2 Chronic atrial fibrillation; D64.9 Anemia, unspecified; I10 Essential (primary) hypertension; N28.9 Disorder of kidney and ureter, unspecified; W01.0XXA Fall on same level from slipping, tripping and stumbling without subsequent striking against object, initial encounter; Y92.009 Unspecified place in unspecified non-institutional (private) residence as the place of occurrence of the external cause; Z79.01 Long term (current) use of anticoagulants; E03.9 Hypothyroidism, unspecified; R33.9 Retention of urine, unspecified; Z90.710 Acquired absence of both cervix and uterus
CPT/HCPCS: 71010; 73502; 76000; 80048; 80053; 81001; 83735; 84100; 85025; 85027; 85610; 85730; 86850; 86900; 86901; 87086; 93005; 93971; 94150; 94640; 94664; 96374; C1713; J0131; J0690; J1170; J1580; J2270; J2370; J3010; J7030; J7613

== ENCOUNTER 2017-05-22 16:42 | Inpatient (IN) | payer MEDICARE, BC ==
[~2017-05-22] VITALS: Ht 162.6 cm; Wt 68.0 kg
[~2017-05-22 16:42] MED LIST changes: +BETH10 PO; -CART240C PO; +COMMODE 3-IN-11 MIS; +COUM1TAB PO; +DILT-64 PO; +ESCI5TAB PO; +FAMO20TA2 PO; +FURO40TA PO; +IOHEXOL 300 MG/ML 100 ML BTL (for Rad CT) IVCONTRAST ONE; +IPRASOL NEB; -JANT2TAB PO; +KETO10 PO; +LEVO.05 PO; +NORC5TAB PO; +ULTR50TA5 PO; +WHEEMIS3
[2017-05-22 17:00] VITALS: BP 107/57; PULSE 70; RESP 16; TEMP 98.3; O2SAT 95
--- NOTE | 2017-05-22 17:36 | HHI.HP ---
HPI Service [facility] Hospitalists Primary Care Physician Unknown Admission Diagnosis Diagnoses: Chief Complaint: Right hip pain Travel History International Travel<30 Days: No Contact w/Intl Traveler <30 Da: No Traveled to Known Affected Are: No History of Present Illness This is an 87-year-old female with past medical history as detailed below and very well-known to me who recently was admitted to [facility] for right hip fracture after a mechanical trip and fall. The patient underwent right hip open reduction internal fixation. The patient was then discharged to [facility] for further rehabilitation needs. During the patient's stay in rehabilitation was noted that her right hip had increased pain and swelling as well as some bruising. A hip for suspected pelvic x-ray was ordered and it showed a device on the right hip was going through the head of the femur and projected just last articular surface in the joint space. A CT of the right hip confirmed the findings. The case was discussed extensively [facility], who stated that he spoke to orthopedic surgery and that they wanted the patient to be transferred to the hospital for revision of the right hip in a.m. The patient denies any chest pain, shortness of breath, has some pain in the right hip with this is most evident when she bears weight over it. Patient also denies cough, diarrhea, nausea, vomiting or abdominal pain. Review of Systems As per history of present illness, other systems reviewed by me and negative Past Family Social History Past Medical History HTN A. fib on Coumadin Hypothyroidism Dementia Past Surgical History Cholecystectomy Hysterectomy Recent right ORIF Reported Medications Reported Meds & Active Scripts Active Synthroid (Levothyroxine Sodium) 50 Mcg Tab 50 Mcg PO DAILY@0600 1 Days Famotidine 20 Mg Tab 10 Mg PO BID 1 Days Furosemide 40 Mg Tab 40 Mg PO BID@0900,1600 1 Days Ultram (Tramadol HCl) 50 Mg Tab 50 Mg PO Q6H PRN Metoprolol Tartrate 25 Mg Tab 12.5 Mg PO DAILY 1 Days Duoneb (Ipratropium-Albuterol Neb) 0.5-2.5 Mg/3 Ml Neb 1 Ampule NEB Q4HR NEB PRN 1 Days Urecholine (Bethanechol Chloride) 10 Mg Tab 5 Mg PO Q12HR 1 Days Diltiazem CD 24 HR 240 Mg Caper 240 Mg PO DAILY 1 Days Hold if SBP < 110 or HR < 60 Escitalopram (Escitalopram Oxalate) 5 Mg Tab 5 Mg PO DAILY 1 Days Propafenone (Propafenone HCl) 225 Mg Tab 225 Mg PO BID 30 Days Commode 3-in-1 (Device) 1 Mis Mis Ea .ROUTE DIRECTED Wheelchair (Device) 1 Mis Mis Ea .ROUTE DIRECTED Metoprolol Tartrate 25 Mg Tab 25 Mg PO DAILY Hold if SBP <110 or HR < 60 Ketorolac (Ketorolac Tromethamine) 10 Mg Tab 10 Mg PO Q6HR PRN Coumadin (Warfarin) 1 Mg Tab 1 Mg PO DAILY@1600 Reported Irmo (Hydrocodone-Acetaminophen) 5-325 mg Tab 1 Tab PO Q4H PRN Allergies: Coded Allergies: aspirin (Unverified Allergy, Severe, 03/25/17) Active Ordered Medications Current Medications Medications (Trade) Dose Ordered Sig/Trina Route Start Time Stop Time Status Last Admin (NS Flush) 2 ml UNSCH PRN IV FLUSH 05/22/17 17:45 (NS Flush) 2 ml BID IV FLUSH 05/22/17 21:00 (Tylenol) 650 mg Q4H PRN PO 05/22/17 17:45 (Zofran Inj) 4 mg Q6H PRN IVP 05/22/17 17:45 (Narcan Inj) 0.4 mg UNSCH PRN IV PUSH 05/22/17 17:45 (Albertina-Colace) 1 tab BID PO 05/22/17 21:00 (Milk Of Magnesia Liq) 30 ml Q12H PRN PO 05/22/17 17:45 (Senokot) 17.2 mg Q12H PRN PO 05/22/17 17:45 (Dulcolax Supp) 10 mg DAILY PRN RECTAL 05/22/17 17:45 (Lactulose Liq) 30 ml DAILY PRN PO 05/22/17 17:45 Sodium Chloride 250 ml @ 15 mls/hr ONCE ONCE IV 05/22/17 17:45 05/23/17 10:24 (Tylenol) 650 mg Q4H PRN PO 05/22/17 17:45 05/22/17 18:42 (Benadryl) 25 mg Q4H PRN PO 05/22/17 17:45 (Lasix Inj) 20 mg UNSCH IV PUSH 05/22/17 17:45 05/22/17 23:59 Family History Unable to tell family medical history Social History Denies alcohol use No tobacco use Denies illicit drug Physical Exam Physical Exam GENERAL: This is a well-nourished, well-developed patient, in no apparent distress. SKIN: No rashes, ecchymoses or lesions. Cool and dry. HEAD: Atraumatic. Normocephalic. No temporal or scalp tenderness. EYES: Pupils equal round and reactive. Extraocular motions intact. No scleral icterus. No injection or drainage. ENT: Nose without bleeding, purulent drainage or septal hematoma. Throat without erythema, tonsillar hypertrophy or exudate. Uvula midline. Airway patent. NECK: Trachea midline. No JVD or lymphadenopathy. Supple, nontender, no meningeal signs. CARDIOVASCULAR: Regular rate and rhythm without murmurs, gallops, or rubs. RESPIRATORY: Clear to auscultation. Breath sounds equal bilaterally. No wheezes , rales, or rhonchi. GASTROINTESTINAL: Abdomen soft, non-tender, nondistended. No hepato-splenomegaly , or palpable masses. No guarding. MUSCULOSKELETAL: Extremities without clubbing, cyanosis, or edema. No joint tenderness, effusion, or edema noted. No calf tenderness. Negative Homans sign bilaterally. NEUROLOGICAL: Awake and alert. Cranial nerves II through XII intact. Motor and sensory grossly within normal limits. Five out of 5 muscle strength in all muscle groups. Normal speech. Laboratory Labs available from 05/20/17 shows a WBC of 7.0, hemoglobin 9.1, platelets of 392. Sodium 137, potassium 3.8, carbon dioxide 35.8, BP 123, creatinine 0.69 Imaging Hip/pelvis x-ray obtained on 05/21/17 distracted patient status post internal fixation of the right proximal femur. It also shows device going through the head of the femur and projecting just past surgical surface of the joint space. CT of the right lower extremity shows similar findings. Both imaging modalities were reviewed by me. Caprini VTE Risk Assessment Caprini VTE Risk Assessment: Mod/High Risk (score >= 2) VTE Pharm Contraindication: Coagulopathy,INR elevated Caprini Risk Assessment Model Point Value = 1 Point Value = 2 Point Value = 3 Point Value = 5 Age 41-60 Minor surgery BMI > 25 kg/m2 Swollen legs Varicose veins or History of unexplained or recurrent spontaneous Oral contraceptives or hormone replacement Sepsis (< 1 month) Serious lung disease, including pneumonia (< 1 month) Abnormal pulmonary function Acute myocardial infarction Congestive heart failure (< 1 month) History of inflammatory bowel disease Medical patient at bed rest Age 61-74 Arthroscopic surgery Major open surgery (> 45 min) Laparoscopic surgery (> 45 min) Malignancy Confined to bed (> 72 hours) Immobilizing plaster cast Central venous access Age >= 75 History of VTE Family history of VTE Factor V Leiden Prothrombin [id number] Lupus anticoagulant Anticardiolipin antibodies Elevated serum homocysteine Heparin-induced thrombocytopenia Other congenital or acquired thrombophilia Stroke (< 1 month) Elective arthroplasty Hip, pelvis, or leg fracture Acute spinal cord injury (< 1 month) Prophylaxis Regimen Total Risk Factor Score Risk Level Prophylaxis Regimen 0-1 Low Early ambulation 2 Moderate Order ONE of the following: *Sequential Compression Device (SCD) *Heparin 5000 units SQ BID 3-4 Higher Order ONE of the following medications: *Heparin 5000 units SQ TID *Enoxaparin/Lovenox 40 mg SQ daily (WT < 150 kg, CrCl > 30 mL/min) *Enoxaparin/Lovenox 30 mg SQ daily (WT < 150 kg, CrCl > 10-29 mL/min) *Enoxaparin/Lovenox 30 mg SQ BID (WT < 150 kg, CrCl > 30 mL/min) AND/OR *Sequential Compression Device (SCD) 5 or more Highest Order ONE of the following medications: *Heparin 5000 units SQ TID (Preferred with Epidurals) *Enoxaparin/Lovenox 40 mg SQ daily (WT < 150 kg, CrCl > 30 mL/min) *Enoxaparin/Lovenox 30 mg SQ daily (WT < 150 kg, CrCl > 10-29 mL/min) *Enoxaparin/Lovenox 30 mg SQ BID (WT < 150 kg, CrCl > 30 mL/min) AND *Sequential Compression Device (SCD) Assessment and Plan Problem List: (1) Hip fracture, right ICD Code: S72.001A - Fracture of unspecified part of neck of right femur, initial encounter for closed fracture (2) HTN (hypertension) ICD Code: I10 - Essential (primary) hypertension Status: Chronic (3) COPD (chronic obstructive pulmonary disease) ICD Code: J44.9 - Chronic obstructive pulmonary disease, unspecified Status: Chronic (4) Dementia ICD Code: F03.90 - Unspecified dementia without behavioral disturbance Status: Chronic (5) Hypothyroidism ICD Code: E03.9 - Hypothyroidism, unspecified Status: Chronic (6) A-fib ICD Code: I48.91 - Unspecified atrial fibrillation Status: Chronic (7) Fall ICD Code: W19.XXXA - Unspecified fall, initial encounter Status: Acute Assessment and Plan Admit the patient to the orthopedic floor Patient's INR is therapeutic at 2.1, will transfuse 1 unit therapy and give vitamin K. Repeat INR at 4:30 AM Patient for revision of the right ORIF in a.m. Tramadol for pain control Nothing by mouth after midnight Continue clinical medications for hypothyroidism, hypertension Case discussed with RN. Discussed Condition With Patient, RN. Physician Certification Order for Inpatient Services The services are ordered in accordance with Medicare regulations or non- Medicare payer requirements, as applicable. In the case of services not specified as inpatient-only, they are appropriately provided as inpatient services in accordance with the 2-midnight benchmark. days is the estimated time the patient will need to remain in the hospital, assuming treatment plan goals are met and no additional complications. Blayne Staton MD May 22, 2017 17:36
[2017-05-22] MEDS ORDERED: LACTULOSE SYRUP 20 GM/30 ML CUP PO PRN (17:45)
[2017-05-22] MEDS ORDERED: SODIUM CHLOR 0.9% 250 ML INJ 250 ML IV ONE (17:45)
[2017-05-22] MEDS ORDERED: NALOXONE HCL 0.4 MG/ML AMP IV PUSH PRN (17:45)
[2017-05-22] MEDS ORDERED: MAGNESIUM HYDROXIDE SUSP 30 ML CUP PO PRN (17:45)
[2017-05-22] MEDS ORDERED: SODIUM CHLORIDE 0.9% FLUSH 10 ML FLUSH IV FLUSH PRN (17:45)
[2017-05-22] MEDS ORDERED: SENNOSIDES 8.6 MG TAB PO PRN (17:45)
[2017-05-22] MEDS ORDERED: BISACODYL 10 MG SUPP RECTAL PRN (17:45)
[2017-05-22] MEDS ORDERED: ACETAMINOPHEN 325 MG TAB PO PRN ×2 (17:45)
[2017-05-22] MEDS ORDERED: FUROSEMIDE 20 MG/2 ML VIAL IV PUSH SCH (17:45)
[2017-05-22] MEDS ORDERED: diphenhydrAMINE HCL 25 MG CAP PO PRN (17:45)
[2017-05-22] MEDS ORDERED: ONDANSETRON HCL 4 MG/2 ML VIAL IVP PRN (17:45)
--- NOTE | 2017-05-22 18:40 | EKG ---
Date Performed: 05/22/2017 Time Performed: 18:12:14 PTAGE: 87 years EKG: ELECTRONIC ATRIAL PACEMAKER LOW QRS VOLTAGE IN EXTREMITY LEADS INCOMPLETE RIGHT BUNDLE BRAN CH BLOCK ST/T ABNORMALITY, CONSIDER ANTERIOR ISCHEMIA ABNORMAL ECG PREVIOUS TRACING : 05/10/2017 03.46 No significant change from previous tracing noted. DOCTOR: Ruddy Palacios Interpretating Date/Time 05/22/2017 18:39:49
[2017-05-22] MEDS: DOCUSATE SODIUM 50 MG/SENNA 8.6 MG TAB PO SCH (21:40)
[2017-05-22] MEDS: SODIUM CHLORIDE 0.9% FLUSH 10 ML FLUSH IV FLUSH SCH (21:40)
[2017-05-22 21:51] VITALS: BP 125/62; PULSE 79; RESP 17; TEMP 97.4; O2SAT 95
[2017-05-22] MEDS ORDERED: PHYTONADIONE INJ 10 MG in SODIUM CHLORIDE 0.9% INJ 50 ML IV ONE (22:00)
[2017-05-22 22:07] VITALS: BP 111/60; PULSE 72; RESP 18; TEMP 98.1; O2SAT 95
[2017-05-23 00:45] VITALS: BP 125/59; PULSE 73; RESP 17; TEMP 97.8; O2SAT 96
[2017-05-23] MEDS ORDERED: SODIUM CHLORID 0.9% 500 ML IV PRN (03:15)
[2017-05-23] MEDS ORDERED: METOPROLOL TARTRATE 25 MG TAB PO PRN (03:15)
[2017-05-23] MEDS ORDERED: CHLORHEXIDINE GLUCONATE 2 % 1 PACK (2 CLOTHS) TOPICAL PRN (03:15)
[2017-05-23] MEDS ORDERED: POVIDONE IODINE 5% (ANTISEPSIS KIT) 4 APPLICATIONS EACH NARE PRN (03:15)
[2017-05-23] MEDS ORDERED: INSULIN HUMAN REGULAR 1,000 UNITS/10 ML VIAL SQ PRN (03:15)
[2017-05-23] MEDS ORDERED: LACTATED RINGER'S 1000 ML IV PRN (03:15)
[2017-05-23 04:00] VITALS: BP 120/63; PULSE 93; RESP 18; TEMP 97.7; O2SAT 95
[2017-05-23 05:46] LABS: AUTOMATED NEUTROPHIL # 4.2 TH/MM3 (1.8-7.7); BASOPHIL # 0.1 TH/MM3 (0-0.2); BASOPHIL % 0.8 % (0.0-2.0); EOSINOPHIL # 0.1 TH/MM3 (0-0.4); EOSINOPHIL % 1.6 % (0.0-4.0); HEMATOCRIT 30.3 % (35.0-46.0); HEMO FLAGS DIFF FINAL; LYMPHOCYTE # 0.9 TH/MM3 (1.0-4.8); MEAN CELL VOLUME 96.6 FL (80.0-100.0); MEAN CORPUSCULAR HEMOGLOBIN 32.1 PG (27.0-34.0); MEAN CORPUSCULAR HGB CONC 33.2 % (32.0-36.0); NEUT % 69.6 % (16.0-70.0); PLATELET COUNT 343 TH/MM3 (150-450); RED BLOOD COUNT 3.13 MIL/MM3 (4.00-5.30); RED CELL DISTRIBUTION WIDTH 15.4 % (11.6-17.2)
[2017-05-23 06:01] LABS: INTERNATIONAL NORMALIZED RATIO 1.3 RATIO; PROTHROMBIN TIME - PATIENT 14.9 SEC (9.8-11.6)
--- NOTE | 2017-05-23 06:59 | PD.ORT.PN ---
Subjective Subjective Remarks Still continues to plan about pain of right hip Objective Vitals Vital Signs Date Time Temp Pulse Resp B/P (MAP) Pulse Ox O2 Delivery O2 Flow Rate FiO2 05/23/17 04:00 97.7 93 18 120/63 (82) 95 05/23/17 00:45 97.8 73 17 125/59 96 05/22/17 22:07 98.1 72 18 111/60 95 05/22/17 21:51 97.4 79 17 125/62 95 05/22/17 17:00 98.3 70 16 107/57 (74) 95 I/O 05/22/17 05/22/17 05/22/17 05/23/17 05/23/17 05/23/17 07:00 15:00 23:00 07:00 15:00 23:00 Intake Total 500 ml 365 ml Balance 500 ml 365 ml Intake Oral 500 ml 0 ml IV Total 62 ml FFP 293 ml Blood Product IV Normal Saline Flush 10 ml # Voids 4 6 Result Diagram: 05/23/17 0525 Other Results Laboratory Tests Test 05/23/17 05:25 Prothromb Time International Ratio 1.3 RATIO Prothrombin Time 14.9 SEC (9.8-11.6) Objective Remarks Left lower extremity: Incisions healing well with Steri-Strips in place. Moderate bruising. Pain with range of motion of hip. Distally intact sensation with good capillary refills Assessment & Plan Assessment and Plan Right intertrochanteric femur fracture with further compression of fracture with interarticular compromise of hardware Nothing by mouth Hold Coumadin Plan for surgery today for revision of right hip We'll plan on discharge back to rehabilitation when stable Juice Suresh Jr. May 23, 2017 06:59
[2017-05-23 07:10] VITALS: BP 127/68; PULSE 77; RESP 16; TEMP 97.9; O2SAT 95
[2017-05-23 08:43] LABS: ALKALINE PHOSPHATASE 93 U/L (45-117); ALT (GPT) 27 U/L (10-53); ANION GAP 6 MEQ/L (5-15); AST (GOT) 25 U/L (15-37); BICARBONATE 33.3 MEQ/L (21.0-32.0); BLOOD UREA NITROGEN 19 MG/DL (7-18); CHLORIDE 97 MEQ/L (98-107); GLOMERULAR FILTRATION RATE 89 ML/MIN (>89); POTASSIUM 3.7 MEQ/L (3.5-5.1); SODIUM (NA) 136 MEQ/L (136-145); TOTAL BILIRUBIN ADULT 0.8 MG/DL (0.2-1.0)
[2017-05-23] MEDS: SODIUM CHLORIDE 0.9% FLUSH 10 ML FLUSH IV FLUSH SCH (08:54)
[2017-05-23] MEDS: DOCUSATE SODIUM 50 MG/SENNA 8.6 MG TAB PO SCH ×2 (08:54→21:56)
[2017-05-23] MEDS ORDERED: VANCOMYCIN HCL 1000 MG VIAL ONE (09:39)
[2017-05-23] MEDS ORDERED: HEPARIN SODIUM - SQ 10,000 UNITS/ML VIAL ONE (09:39)
[2017-05-23] MEDS ORDERED: ceFAZolin INJ 1,000 MG VIAL ONE (09:39)
[2017-05-23] MEDS ORDERED: GENTAMICIN SULFATE 80 MG/2 ML VIAL ONE (09:39)
[2017-05-23] MEDS ORDERED: TRANEXAMIC ACID INJ 1,020 MG in SODIUM CHLORIDE 0.9% INJ 100 ML IV SCH (11:00)
--- NOTE | 2017-05-23 11:57 | PD.ORT.PN ---
Subjective Subjective Remarks Patient had previous right hip intertrochanteric fracture treated with intramedullary nail by Dr. Morley 2 weeks ago. Patient began developing collapse around the hardware with penetration of the articular surface. She had revision internal fixation of right hip today Objective Vitals Vital Signs Date Time Temp Pulse Resp B/P (MAP) Pulse Ox O2 Delivery O2 Flow Rate FiO2 05/23/17 09:06 Nasal Cannula 2 05/23/17 07:10 97.9 77 16 127/68 (87) 95 05/23/17 04:00 97.7 93 18 120/63 (82) 95 05/23/17 00:45 97.8 73 17 125/59 96 05/22/17 22:07 98.1 72 18 111/60 95 05/22/17 21:51 97.4 79 17 125/62 95 05/22/17 17:00 98.3 70 16 107/57 (74) 95 I/O 05/22/17 05/22/17 05/22/17 05/23/17 05/23/17 05/23/17 07:00 15:00 23:00 07:00 15:00 23:00 Intake Total 500 ml 365 ml Balance 500 ml 365 ml Intake Oral 500 ml 0 ml IV Total 62 ml FFP 293 ml Blood Product IV Normal Saline Flush 10 ml # Voids 4 6 Result Diagram: 05/23/17 0525 05/23/17 0525 Other Results Laboratory Tests Test 05/23/17 05:25 Prothromb Time International Ratio 1.3 RATIO Prothrombin Time 14.9 SEC (9.8-11.6) Objective Remarks Left lower extremity: Clean dry dressings intact over surgical incisions. Distally intact sensation with good capillary refills Assessment & Plan Assessment and Plan Postoperative day #0 status post revision reduction and intramedullary nail fixation right femur Toe-touch weightbearing Lovenox/ Coumadin/ Check a.m. INR We'll plan on discharge back to rehabilitation when stable Tyrell Singleton MD May 23, 2017 11:57
[2017-05-23] MEDS ORDERED: NEOSTIGMINE 3 MG/3 ML SYR IV ONE (12:00)
[2017-05-23] MEDS ORDERED: ESMOLOL HCL 100 MG/10 ML VIAL IV ONE (12:00)
[2017-05-23] MEDS ORDERED: ePHEDrine/NS 25 MG/5 ML SYR IV ONE (12:00)
[2017-05-23] MEDS ORDERED: ERGOCALCIFEROL (VIT D2) 50,000 UNIT CAP PO ONE (12:00)
[2017-05-23] MEDS ORDERED: SODIUM CHLORIDE 0.9% 20 ML VIAL IV ONE (12:00)
[2017-05-23] MEDS ORDERED: GLYCOPYRROLATE 1 MG/5 ML SYRINGE IV PUSH ONE (12:00)
[2017-05-23] MEDS ORDERED: SODIUM CHLORIDE 0.9% FLUSH 5 ML FLUSH IVF PRN (12:00)
[2017-05-23] MEDS ORDERED: MORPHINE SULFATE 4 MG/ML INJ IV PUSH PRN (12:00)
[2017-05-23] MEDS ORDERED: LIDOCAINE HCL 1% PF 5 ML AMPULE OTHER ONE (12:00)
[2017-05-23] MEDS ORDERED: LACTATED RINGER'S 1000 ML INJ 1,000 ML IV ONE (12:00)
[2017-05-23] MEDS ORDERED: ROCURONIUM INJ 50 MG/5 ML SYRINGE IV PUSH ONE (12:00)
[2017-05-23] MEDS ORDERED: PROPOFOL 200 MG/20 ML AMP IV ONE (12:00)
[2017-05-23] MEDS ORDERED: ONDANSETRON HCL 4 MG/2 ML VIAL IV PUSH ONE (12:00)
[2017-05-23] MEDS ORDERED: PHENYLEPH/NS 1000 MCG/10 ML SYR IV ONE (12:00)
[2017-05-23] MEDS ORDERED: DEXAMETHASONE SOD PHOS 4 MG/ML VIAL IV ONE (12:00)
--- NOTE | 2017-05-23 12:02 | PD.OP ---
cc: Tyrell Weiss MD Operative Report Date of Surgery: May 23, 2017 Preoperative Diagnosis: Right hip intertrochanteric fracture with collapse around intramedullary nail Postoperative Diagnosis: Procedure: Removal of deep hardware, revision internal fixation of right hip intertrochanteric fracture Anesthesia: Gen. Surgeon: Tyrell Weiss Transition Coach(s): Rocky Suresh PA-C The surgical procedure was assisted by my physician visitor services assistant. My P.A. presence was necessary throughout this case for the manipulation and positioning of the surgical extremity. My P.A. was assisting me throughout the duration of this procedure. The skill set of a physician visitor services assistant was medically necessary to complete this procedure. During the surgical case the surgical technology instructor was working at the back table and the physician visitor services assistant was directly assisting me. Operation and Findings: Implants used: 12 mm x [360]mm Synthes TFNA troch nail Plan of activity: Toe-touch weightbearing 4 weeks, then 50% weightbearing Patient was seen and evaluated preoperatively. The patient has significant hip pain from right proximal femur fracture. Patient was developing collapse of the proximal femur around the hardware. X-rays revealed that the hardware were beginning to penetrate the articular surface The risk and benefits of surgery were discussed in depth with the patient to include bleeding, infection, nonunion, malunion, need for hip replacement, painful hardware, as well as medical competitions including blood clots, stroke, heart attack, and . Informed consent was obtained. Operative site was marked. Patient was brought to the operating room and placed on fracture table. IV sedation was administered by anesthesiologist. Timeout procedure was performed. Hip and leg were prepped with alcohol followed by DuraPrep and draped in the usual sterile fashion. IV antibiotics were given prior to incision. Procedure began with removal of deep hardware. The distal screw was removed first. Incisions were made through previous scars. The set screw was now loosened proximally. The helical blade was identified. Extraction handle was screwed into the blade. An extraction handle was also screwed into the proximal end of the nail. The helical blade was now removed. The nail was then removed. Next attention was turned towards reduction of fracture. Traction was applied. The leg was manipulated to achieve reduction. Excellent reduction was achieved. Fluoroscopy was used to confirm reduction. Subcutaneous tissue was dissected bluntly. Guidepin was placed at the tip of the trochanter and advanced into the femoral canal. Fluoroscopy confirmed appropriate guidepin placement. A opening reamer was placed over the guidepin. A long ball tipped guide pin was now placed down the femoral canal into the center of the distal femur. The nail length was now measured. Fluoroscopy confirmed appropriate guidepin placement. Flexible reamers were now passed over the guidepin to ream the intramedullary canal. The Synthes TFNA nail was attached to the insertion handle. Nail was now placed over the guidepin into the femoral canal. Fluoroscopy confirmed appropriate nail placement. At this point attention was turned to bone grafting of the femoral head. Approximately 10 cc of cancellus bone chips were placed into the cannula. The cannula was placed and the track of the previous helical blade. The bone graft was placed underneath the articular surface of the femoral head. Next 10 cc of Norion calcium phosphate cement was mixed. The cement was now carefully injected along the helical blade path of the femoral neck. Cannulas were placed through the insertion handle down to the femur. Guidepin was now placed through the femoral nail into the center of the femoral head. Fluoroscopy confirmed appropriate guidepin placement. Screw length was measured. Cannulated drill was placed over the guidepin. Appropriate length lag screw was now placed. Traction was released and compression was applied. The set screw was now tightened in dynamic mode. Next, using perfect [place] technique a distal interlocking screw was placed. Screw holes were predrilled and screw lengths were measured. Final fluoroscopy revealed well aligned fracture with well-placed hardware. Incision was closed with 3-0 Vicryl and diaz. Sterile dressings were applied. Patient was awakened and transferred to recovery room. Tyrell Weiss MD May 23, 2017 12:02
[2017-05-23] MEDS ORDERED: *morphine SULFATE 8 MG/ML PERIprocedure ONLY ONE (12:36)
--- NOTE | 2017-05-23 12:38 | RADRPT ---
EXAM DATE/TIME: 05/23/2017 11:44 [facility] COMPARISON: HIP RIGHT (AP&LAT 2/3VWS) WO AP PELVIS, May 10, 2017, 12:48. INDICATIONS : Right hip revision femoral nail. MEDICAL HISTORY : None. SURGICAL HISTORY : ORIF right hip fracture. ENCOUNTER: Subsequent ACUITY: 1 day PAIN SCORE: Non-responsive. LOCATION: Right Hip. FINDINGS: Troch nail right hip in anatomic alignment. CONCLUSION: Anatomic alignment. Cyrus Shoemaker MD FACR on May 23, 2017 at 12:36 Board Certified Radiologist. This report was verified electronically.
[2017-05-23 13:50] VITALS: BP 121/64; PULSE 82; RESP 16; TEMP 95.9; O2SAT 96
[2017-05-23 15:35] VITALS: BP 130/69; PULSE 93; RESP 16; TEMP 95.5; O2SAT 97
[2017-05-23] MEDS: WARFARIN SOD 1 MG TAB PO SCH (16:00)
--- NOTE | 2017-05-23 19:43 | HHI.PR ---
Subjective Remarks Patient states that pain is controlled sp right hip revision. Denies cp/sob denies cough denies nausea or vomiting Objective Vitals Vital Signs Date Time Temp Pulse Resp B/P (MAP) Pulse Ox O2 Delivery O2 Flow Rate FiO2 05/23/17 15:35 95.5 93 16 130/69 (89) 97 05/23/17 13:50 95.9 82 16 121/64 (83) 96 05/23/17 13:15 72 16 127/60 (82) 95 Nasal Cannula 2 05/23/17 13:00 76 16 118/57 (77) 94 Nasal Cannula 2 05/23/17 12:45 80 16 121/60 (80) 96 Nasal Cannula 2 05/23/17 12:30 82 16 138/62 (87) 95 Nasal Cannula 2 05/23/17 12:15 82 16 138/64 (88) 96 Nasal Cannula 2 05/23/17 12:12 97.5 82 16 147/70 (95) 97 Nasal Cannula 2 05/23/17 09:06 Nasal Cannula 2 05/23/17 07:10 97.9 77 16 127/68 (87) 95 05/23/17 04:00 97.7 93 18 120/63 (82) 95 05/23/17 00:45 97.8 73 17 125/59 96 05/22/17 22:07 98.1 72 18 111/60 95 05/22/17 21:51 97.4 79 17 125/62 95 I/O 05/22/17 05/22/17 05/22/17 05/23/17 05/23/17 05/23/17 07:00 15:00 23:00 07:00 15:00 23:00 Intake Total 500 ml 365 ml 840 ml Output Total 50 ml Balance 500 ml 365 ml 790 ml Intake Oral 500 ml 0 ml 120 ml IV Total 62 ml 20 ml FFP 293 ml Blood Product IV Normal Saline Flush 10 ml Other 700 ml Output Estimated Blood Loss 50 ml # Voids 4 6 1 # Bowel Movements 0 Result Diagram: 05/23/17 0525 05/23/17 0525 Imaging Last Impressions Hip X-Ray 05/23/17 0000 Signed Impressions: Service Date/Time: Tuesday, May 23, 2017 11:44 - CONCLUSION: Anatomic alignment. Cyrus Shoemaker MD FACR Objective Remarks GENERAL: This is a well-nourished, well-developed patient, in no apparent distress. SKIN: No rashes, ecchymoses or lesions. Cool and dry. HEAD: Atraumatic. Normocephalic. No temporal or scalp tenderness. EYES: Pupils equal round and reactive. Extraocular motions intact. No scleral icterus. No injection or drainage. ENT: Nose without bleeding, purulent drainage or septal hematoma. Throat without erythema, tonsillar hypertrophy or exudate. Uvula midline. Airway patent. NECK: Trachea midline. No JVD or lymphadenopathy. Supple, nontender, no meningeal signs. CARDIOVASCULAR: Regular rate and rhythm without murmurs, gallops, or rubs. RESPIRATORY: Clear to auscultation. Breath sounds equal bilaterally. No wheezes , rales, or rhonchi. GASTROINTESTINAL: Abdomen soft, non-tender, nondistended. No hepato-splenomegaly , or palpable masses. No guarding. MUSCULOSKELETAL: Extremities without clubbing, cyanosis, or edema. No joint tenderness, effusion, or edema noted. No calf tenderness. Negative Homans sign bilaterally. Dressing over right hip C/D/I with moderate swelling and some bruising but not worst than in previous days. NEUROLOGICAL: Awake and alert. Cranial nerves II through XII intact. Motor and sensory grossly within normal limits. Five out of 5 muscle strength in all muscle groups. Normal speech. Procedures sp Right hip revision on 05/23 Medications and IVs Current Medications Medications (Trade) Dose Ordered Sig/Trina Route Start Time Stop Time Status Last Admin (Tylenol) 650 mg Q4H PRN PO 05/22/17 17:45 (Zofran Inj) 4 mg Q6H PRN IVP 05/22/17 17:45 (Narcan Inj) 0.4 mg UNSCH PRN IV PUSH 05/22/17 17:45 (Albertina-Colace) 1 tab BID PO 05/22/17 21:00 05/24/17 08:13 (Milk Of Magnesia Liq) 30 ml Q12H PRN PO 05/22/17 17:45 (Senokot) 17.2 mg Q12H PRN PO 05/22/17 17:45 (Dulcolax Supp) 10 mg DAILY PRN RECTAL 05/22/17 17:45 (Lactulose Liq) 30 ml DAILY PRN PO 05/22/17 17:45 (Tylenol) 650 mg Q4H PRN PO 05/22/17 17:45 05/22/17 18:42 (Benadryl) 25 mg Q4H PRN PO 05/22/17 17:45 (Ultram) 50 mg Q6H PRN PO 05/22/17 19:15 05/24/17 03:42 Lactated Ringer's 1,000 ml @ 30 mls/hr Q24H PRN IV 05/23/17 03:15 05/26/17 03:14 Sodium Chloride 500 ml @ 30 mls/hr [id number] PRN IV 05/23/17 03:15 05/26/17 03:14 (Lopressor) 25 mg SENIOR [employer] DEVELOPER PRN PO 05/23/17 03:15 05/26/17 03:14 (Betadine 5% Antisepsis Kit) 1 applic SENIOR [employer] WE[employer] DEVELOPER PRN EACH NARE 05/23/17 03:15 05/26/17 03:14 (Chlorhexidine 2% Cloth) 3 pack SENIOR [employer] WE[employer] DEVELOPER PRN TOPICAL 05/23/17 03:15 05/26/17 03:14 (NovoLIN R INJ) See Protocol Table ... SENIOR [employer] WE[employer] DEVELOPER PRN SQ 05/23/17 03:15 05/26/17 03:14 Tranexamic Acid 1020 mg/Sodium Chloride 110.2 ml @ 200 mls/hr ONCE IV 05/23/17 11:00 05/24/17 17:00 05/23/17 10:37 (NS Flush) 2 ml UNSCH PRN IVF 05/23/17 12:00 (NS Flush) 2 ml BID IVF 05/23/17 21:00 (Lovenox Inj) 30 mg Q24H SQ 05/24/17 11:00 05/25/17 11:01 Cefazolin Sodium 1000 mg/Sodium Chloride 100 ml @ 200 mls/hr Q8H IV 05/23/17 18:00 05/24/17 10:29 05/24/17 01:26 ([place] 7.5-325 Mg) 1 tab Q3H PRN PO 05/23/17 12:00 (Morphine Inj) 3 mg Q3H PRN IV PUSH 05/23/17 12:00 (Vitamin D3) 5,000 units DAILY PO 05/24/17 09:00 05/24/17 08:13 (Coumadin) 1 mg DAILY@1600 PO 05/23/17 16:00 05/23/17 16:00 Urinary Catheter: No Vascular Central Line Catheter: No A/P Problem List: (1) Hip fracture, right ICD Code: S72.001A - Fracture of unspecified part of neck of right femur, initial encounter for closed fracture Plan: The patient was admitted to the orthopedic floor for revision of the right hip ORIF. Status post infusion of 1 unit of FFP and vitamin K administration with successful reversal of anti-correlation and INR down to 1.3. The patient underwent revision of the right hip today. Pain control as per orthopedic surgery. (2) HTN (hypertension) ICD Code: I10 - Essential (primary) hypertension Status: Chronic Plan: Vital signs stable off antihypertensive medications. Continue to monitor for now. (3) COPD (chronic obstructive pulmonary disease) ICD Code: J44.9 - Chronic obstructive pulmonary disease, unspecified Status: Chronic Plan: Seems stable. Continue supplemental oxygen to keep an oxygen saturation more than 92%. (4) Dementia ICD Code: F03.90 - Unspecified dementia without behavioral disturbance Status: Chronic Plan: Seems to be stable. Patient not on any medications for this. (5) Hypothyroidism ICD Code: E03.9 - Hypothyroidism, unspecified Status: Chronic Plan: Continue Levothyroxine in am. (6) A-fib ICD Code: I48.91 - Unspecified atrial fibrillation Status: Chronic Plan: Rate controlled. Will resume Cardizem in am. INR subtherapeutic - Warfarin resumed, continue to monitor daily PT/INR (7) Fall ICD Code: W19.XXXA - Unspecified fall, initial encounter Status: Acute Plan: Continue PT as per orthopedic surgery recommendations. Assessment and Plan DVT prophylaxis: Patient resumed on Coumadin - Lovenox as per orthopedic surgery. Discharge Planning Needs ortho clearance. Problem Qualifiers (1) HTN (hypertension): Qualified Codes: I10 - Essential (primary) hypertension (2) COPD (chronic obstructive pulmonary disease): Qualified Codes: J42 - Unspecified chronic bronchitis (3) Dementia: Qualified Codes: F03.90 - Unspecified dementia without behavioral disturbance (4) Fall: Qualified Codes: W19.XXXD - Unspecified fall, subsequent encounter Blayne Staton MD May 23, 2017 19:43
[2017-05-23 20:00] VITALS: BP 129/73; PULSE 91; RESP 17; TEMP 97; O2SAT 95
[2017-05-23] MEDS: SODIUM CHLORIDE 0.9% FLUSH 5 ML FLUSH IVF SCH (21:56)
[2017-05-24] VITALS: BP 125/68; PULSE 96; RESP 16; TEMP 98.1; O2SAT 96
[2017-05-24] MEDS: traMADol HCL 50 MG TAB PO PRN ×3 (03:42→19:14)
[2017-05-24 04:00] VITALS: BP 121/64; PULSE 91; RESP 17; TEMP 98.6; O2SAT 95
[2017-05-24 06:42] LABS: HEMATOCRIT 29.9 % (35.0-46.0); REVIEW FLAG FINAL
[2017-05-24 08:00] VITALS: BP 139/61; PULSE 97; RESP 18; TEMP 98.7; O2SAT 95
[2017-05-24] MEDS: DOCUSATE SODIUM 50 MG/SENNA 8.6 MG TAB PO SCH ×2 (08:13→21:25)
[2017-05-24] MEDS: CHOLECALCIFEROL (VIT D3) 5000 UNIT CAP PO SCH (08:13)
--- NOTE | 2017-05-24 08:35 | PD.ORT.PN ---
Subjective Subjective Remarks Laying in bed. Hard of hearing. Complains of right hip pain. No new radiating leg pain. No new questions. No CP or SOB. Objective Vitals Vital Signs Date Time Temp Pulse Resp B/P (MAP) Pulse Ox O2 Delivery O2 Flow Rate FiO2 05/24/17 08:00 98.7 97 18 139/61 (87) 95 05/24/17 04:00 98.6 91 17 121/64 (83) 95 05/24/17 00:00 98.1 96 16 125/68 (87) 96 05/23/17 20:00 97.0 91 17 129/73 (91) 95 05/23/17 15:35 95.5 93 16 130/69 (89) 97 05/23/17 13:50 95.9 82 16 121/64 (83) 96 05/23/17 13:15 72 16 127/60 (82) 95 Nasal Cannula 2 05/23/17 13:00 76 16 118/57 (77) 94 Nasal Cannula 2 05/23/17 12:45 80 16 121/60 (80) 96 Nasal Cannula 2 05/23/17 12:30 82 16 138/62 (87) 95 Nasal Cannula 2 05/23/17 12:15 82 16 138/64 (88) 96 Nasal Cannula 2 05/23/17 12:12 97.5 82 16 147/70 (95) 97 Nasal Cannula 2 05/23/17 09:06 Nasal Cannula 2 I/O 05/23/17 05/23/17 05/23/17 05/24/17 05/24/17 05/24/17 06:59 14:59 22:59 06:59 14:59 22:59 Intake Total 365 ml 840 ml 240 ml 340 ml Output Total 50 ml Balance 365 ml 790 ml 240 ml 340 ml Intake Oral 0 ml 120 ml 240 ml 240 ml IV Total 62 ml 20 ml 100 ml FFP 293 ml Blood Product IV Normal Saline Flush 10 ml Other 700 ml Output Estimated Blood Loss 50 ml # Voids 6 1 1 3 # Bowel Movements 0 Result Diagram: 05/24/1752705/23/17524 Other Results Laboratory Tests Test 05/24/17 05:28 Prothromb Time International Ratio 1.0 RATIO Prothrombin Time 11.0 SEC (9.8-11.6) Objective Remarks Laying in bed NAD VSS RLE Hip and knee dressings c/d/i, mild swelling and warmth, no erythema Some tenderness with palpation at surgical incisions, thigh supple +motor at, +sens, +nvi, neg homans Assessment & Plan Ortho Post Op Day #: 1 Problem List: Assessment and Plan pod#1 s/p revision reduction and intramedullary nail fixation right femur Ortho stable. PT - Toe-touch weightbearing RLE. Lovenox/ Coumadin - INR 1.0 today Dressing changes as written. D/C planning, likely SNF friday F/U w Dr. Singleton outpatient. Mariama Adorno May 24, 2017 08:35
[2017-05-24] MEDS: LEVOTHYROXINE SODIUM 50 MCG TAB PO SCH (08:45)
[2017-05-24] MEDS: FUROSEMIDE 40 MG TAB PO SCH ×2 (09:00→16:00)
[2017-05-24] MEDS ORDERED: PILL SPLITTER OTHER PRN (09:00)
[2017-05-24] MEDS: ENOXAPARIN SODIUM 30 MG/0.3 ML SYRINGE SQ SCH (10:57)
[2017-05-24] MEDS: ESCITALOPRAM OXALATE 10 MG TAB PO SCH (10:58)
[2017-05-24] MEDS: DILTIAZEM-CD 240 MG CAP ER PO SCH (10:58)
[2017-05-24 13:34] VITALS: BP 113/75; PULSE 91; RESP 18; TEMP 97.8; O2SAT 94
[2017-05-24 16:00] VITALS: BP 106/60; PULSE 85; RESP 18; TEMP 97; O2SAT 98
[2017-05-24] MEDS: WARFARIN SOD 1 MG TAB PO SCH (16:00)
[2017-05-24 19:20] VITALS: BP 111/54; PULSE 75; RESP 17; TEMP 98.3; O2SAT 92
--- NOTE | 2017-05-24 19:59 | HHI.PR ---
Subjective Remarks pain controlled denies cp/sob stable vital signs Objective Vitals Vital Signs Date Time Temp Pulse Resp B/P (MAP) Pulse Ox O2 Delivery O2 Flow Rate FiO2 05/24/17 16:00 97.0 85 18 106/60 (75) 98 05/24/17 13:34 97.8 91 18 113/75 (88) 94 05/24/17 08:00 98.7 97 18 139/61 (87) 95 05/24/17 04:00 98.6 91 17 121/64 (83) 95 05/24/17 00:00 98.1 96 16 125/68 (87) 96 05/23/17 20:00 97.0 91 17 129/73 (91) 95 I/O 05/23/17 05/23/17 05/23/17 05/24/17 05/24/17 05/24/17 07:00 15:00 23:00 07:00 15:00 23:00 Intake Total 365 ml 840 ml 240 ml 340 ml Output Total 50 ml Balance 365 ml 790 ml 240 ml 340 ml Intake Oral 0 ml 120 ml 240 ml 240 ml IV Total 62 ml 20 ml 100 ml FFP 293 ml Blood Product IV Normal Saline Flush 10 ml Other 700 ml Output Estimated Blood Loss 50 ml # Voids 6 1 1 3 # Bowel Movements 0 Result Diagram: 05/24/17 0528 05/23/17 05 Objective Remarks GENERAL: This is a well-nourished, well-developed patient, in no apparent distress. SKIN: No rashes, ecchymoses or lesions. Cool and dry. HEAD: Atraumatic. Normocephalic. No temporal or scalp tenderness. EYES: Pupils equal round and reactive. Extraocular motions intact. No scleral icterus. No injection or drainage. ENT: Nose without bleeding, purulent drainage or septal hematoma. Throat without erythema, tonsillar hypertrophy or exudate. Uvula midline. Airway patent. NECK: Trachea midline. No JVD or lymphadenopathy. Supple, nontender, no meningeal signs. CARDIOVASCULAR: Regular rate and rhythm without murmurs, gallops, or rubs. RESPIRATORY: Clear to auscultation. Breath sounds equal bilaterally. No wheezes , rales, or rhonchi. GASTROINTESTINAL: Abdomen soft, non-tender, nondistended. No hepato-splenomegaly , or palpable masses. No guarding. MUSCULOSKELETAL: Extremities without clubbing, cyanosis, or edema. No joint tenderness, effusion, or edema noted. No calf tenderness. Negative Homans sign bilaterally. Dressing over right hip C/D/I with moderate swelling and some bruising but not worst than in previous days. NEUROLOGICAL: Awake and alert. Cranial nerves II through XII intact. Motor and sensory grossly within normal limits. Five out of 5 muscle strength in all muscle groups. Normal speech. Procedures sp Right hip revision on 05/23 A/P Problem List: (1) Hip fracture, right ICD Code: S72.001A - Fracture of unspecified part of neck of right femur, initial encounter for closed fracture Plan: The patient was admitted to the orthopedic floor for revision of the right hip ORIF. Status post infusion of 1 unit of FFP and vitamin K administration with successful reversal of anti-correlation and INR down to 1.3. The patient underwent revision of the right hip today. Pain control as per orthopedic surgery. (2) HTN (hypertension) ICD Code: I10 - Essential (primary) hypertension Status: Chronic Plan: Vital signs stable off antihypertensive medications. Continue to monitor for now. (3) COPD (chronic obstructive pulmonary disease) ICD Code: J44.9 - Chronic obstructive pulmonary disease, unspecified Status: Chronic Plan: Seems stable. Continue supplemental oxygen to keep an oxygen saturation more than 92%. (4) Dementia ICD Code: F03.90 - Unspecified dementia without behavioral disturbance Status: Chronic Plan: Seems to be stable. Patient not on any medications for this. (5) Hypothyroidism ICD Code: E03.9 - Hypothyroidism, unspecified Status: Chronic Plan: Continue Levothyroxine in am. (6) A-fib ICD Code: I48.91 - Unspecified atrial fibrillation Status: Chronic Plan: Rate controlled. Will resume Cardizem in am. INR subtherapeutic - Warfarin resumed, continue to monitor daily PT/INR (7) Fall ICD Code: W19.XXXA - Unspecified fall, initial encounter Status: Acute Plan: Continue PT as per orthopedic surgery recommendations. Assessment and Plan DVT prophylaxis: Patient resumed on Coumadin - Lovenox as per orthopedic surgery. Discharge Planning Needs ortho clearance. Problem Qualifiers (1) HTN (hypertension): Qualified Codes: I10 - Essential (primary) hypertension (2) COPD (chronic obstructive pulmonary disease): Qualified Codes: J42 - Unspecified chronic bronchitis (3) Dementia: Qualified Codes: F03.90 - Unspecified dementia without behavioral disturbance (4) Fall: Qualified Codes: W19.XXXD - Unspecified fall, subsequent encounter Blayne Staton MD May 24, 2017 19:59
[2017-05-24] MEDS: SODIUM CHLORIDE 0.9% FLUSH 5 ML FLUSH IVF SCH (21:26)
[2017-05-24] MEDS: ACETAMINOPHEN/HYDROcodone 325 MG/7.5 MG TAB PO PRN (21:35)
[2017-05-25 00:15] VITALS: BP_SYST 102; BP_SYST 103; BP_DIAS 56; PULSE 74; RESP 16; TEMP 98.6; O2SAT 92
[2017-05-25] MEDS: LEVOTHYROXINE SODIUM 50 MCG TAB PO SCH (06:03)
[2017-05-25 07:45] VITALS: BP 115/59; PULSE 87; RESP 17; TEMP 98.5; O2SAT 95
--- NOTE | 2017-05-25 07:56 | PD.ORT.PN ---
Subjective Subjective Remarks Laying in bed, resting peacefully. Hard of hearing. No new concerns except continued right hip pain. No new questions. No CP or SOB. Likely returning to [facility] today. Objective Vitals Vital Signs Date Time Temp Pulse Resp B/P (MAP) Pulse Ox O2 Delivery O2 Flow Rate FiO2 05/25/17 00:15 98.6 74 16 103/56 (72) 92 05/24/17 19:20 98.3 75 17 111/54 (73) 92 05/24/17 16:00 97.0 85 18 106/60 (75) 98 05/24/17 13:34 97.8 91 18 113/75 (88) 94 05/24/17 08:00 98.7 97 18 139/61 (87) 95 I/O 05/24/17 05/24/17 05/24/17 05/25/17 05/25/17 05/25/17 07:00 15:00 23:00 07:00 15:00 23:00 Intake Total 340 ml 240 ml 240 ml Balance 340 ml 240 ml 240 ml Intake Oral 240 ml 240 ml 240 ml IV Total 100 ml # Voids 3 2 3 # Bowel Movements 0 0 Result Diagram: 05/24/17 0528 05/23/17 0525 Objective Remarks Laying in bed NAD VSS RLE Hip and knee dressings c/d/i, mild swelling and warmth, no erythema Some tenderness with palpation at surgical incisions, thigh supple +motor at, +sens, +nvi, neg homans Assessment & Plan Ortho Post Op Day #: 2 Problem List: Assessment and Plan pod#2 s/p revision reduction and intramedullary nail fixation right femur She continues to be ortho stable. Ok to d/c back to [facility] today if med stable. PT - Toe-touch weightbearing RLE. Lovenox/ Coumadin - INR not done yet today despite order being placed. Dressing changes as written. [facility] planning[facility] F/U w Dr. Singleton outpatient. Mariama Adorno May 25, 2017 07:56
[2017-05-25] MEDS: DOCUSATE SODIUM 50 MG/SENNA 8.6 MG TAB PO SCH ×2 (08:04→21:53)
[2017-05-25] MEDS: traMADol HCL 50 MG TAB PO PRN (08:04)
[2017-05-25] MEDS: ESCITALOPRAM OXALATE 10 MG TAB PO SCH (08:04)
[2017-05-25] MEDS: CHOLECALCIFEROL (VIT D3) 5000 UNIT CAP PO SCH (08:04)
[2017-05-25] MEDS: DILTIAZEM-CD 240 MG CAP ER PO SCH (08:05)
[2017-05-25] MEDS: FUROSEMIDE 40 MG TAB PO SCH ×2 (09:00→16:24)
[2017-05-25 09:34] LABS: AUTOMATED NEUTROPHIL # 6.6 TH/MM3 (1.8-7.7); BASOPHIL # 0.1 TH/MM3 (0-0.2); BASOPHIL % 0.8 % (0.0-2.0); EOSINOPHIL # 0.1 TH/MM3 (0-0.4); HEMATOCRIT 29.7 % (35.0-46.0); HEMO FLAGS DIFF FINAL; LYMPH % 8.5 % (9.0-44.0); LYMPHOCYTE # 0.7 TH/MM3 (1.0-4.8); MEAN CELL VOLUME 97.9 FL (80.0-100.0); MEAN CORPUSCULAR HEMOGLOBIN 31.4 PG (27.0-34.0); MONO % 11.2 % (0.0-8.0); NEUT % 78.5 % (16.0-70.0); PLATELET COUNT 369 TH/MM3 (150-450); RED BLOOD COUNT 3.03 MIL/MM3 (4.00-5.30); RED CELL DISTRIBUTION WIDTH 15.7 % (11.6-17.2); WHITE BLOOD COUNT 8.4 TH/MM3 (4.0-11.0)
[2017-05-25 09:42] LABS: PROTHROMBIN TIME - PATIENT 11.1 SEC (9.8-11.6)
[2017-05-25 10:09] LABS: ANION GAP 8 MEQ/L (5-15); AST (GOT) 16 U/L (15-37); BICARBONATE 27.9 MEQ/L (21.0-32.0); BLOOD UREA NITROGEN 13 MG/DL (7-18); CHLORIDE 101 MEQ/L (98-107); GLOMERULAR FILTRATION RATE 135 ML/MIN (>89); POTASSIUM 3.8 MEQ/L (3.5-5.1); SODIUM (NA) 137 MEQ/L (136-145)
[2017-05-25 10:11] LABS: ALT (GPT) 17 U/L (10-53)
[2017-05-25 10:12] LABS: ALKALINE PHOSPHATASE 92 U/L (45-117); TOTAL BILIRUBIN ADULT 0.7 MG/DL (0.2-1.0)
[2017-05-25] MEDS: ENOXAPARIN SODIUM 30 MG/0.3 ML SYRINGE SQ SCH (11:08)
[2017-05-25 11:30] VITALS: BP 120/60; PULSE 95; RESP 17; TEMP 98.2; O2SAT 96
[2017-05-25 16:00] VITALS: BP 124/58; PULSE 73; RESP 17; TEMP 98.3; O2SAT 94
--- NOTE | 2017-05-25 16:20 | HHI.PR ---
Subjective Remarks pain is controlled denies chest pain/sob was able to get out of bed today. Objective Vitals Vital Signs Date Time Temp Pulse Resp B/P (MAP) Pulse Ox O2 Delivery O2 Flow Rate FiO2 05/25/17 11:30 98.2 95 17 120/60 (80) 96 05/25/17 07:45 98.5 87 17 115/59 (77) 95 05/25/17 00:15 98.6 74 16 103/56 (72) 92 05/24/17 19:20 98.3 75 17 111/54 (73) 92 I/O 05/24/17 05/24/17 05/24/17 05/25/17 05/25/17 05/25/17 07:00 15:00 23:00 07:00 15:00 23:00 Intake Total 340 ml 240 ml 240 ml Balance 340 ml 240 ml 240 ml Intake Oral 240 ml 240 ml 240 ml IV Total 100 ml # Voids 3 2 3 # Bowel Movements 0 0 Result Diagram: 05/25/17 0758 05/25/17 0758 Imaging Last Impressions Hip X-Ray 05/23/17 0000 Signed Impressions: Service Date/Time: Tuesday, May 23, 2017 11:44 - CONCLUSION: Anatomic alignment. Cyrus Shoemaker MD FACR Objective Remarks GENERAL: This is a well-nourished, well-developed patient, in no apparent distress. SKIN: No rashes, ecchymoses or lesions. Cool and dry. HEAD: Atraumatic. Normocephalic. No temporal or scalp tenderness. EYES: Pupils equal round and reactive. Extraocular motions intact. No scleral icterus. No injection or drainage. ENT: Nose without bleeding, purulent drainage or septal hematoma. Throat without erythema, tonsillar hypertrophy or exudate. Uvula midline. Airway patent. NECK: Trachea midline. No JVD or lymphadenopathy. Supple, nontender, no meningeal signs. CARDIOVASCULAR: Regular rate and rhythm without murmurs, gallops, or rubs. RESPIRATORY: Clear to auscultation. Breath sounds equal bilaterally. No wheezes , rales, or rhonchi. GASTROINTESTINAL: Abdomen soft, non-tender, nondistended. No hepato-splenomegaly , or palpable masses. No guarding. MUSCULOSKELETAL: Extremities without clubbing, cyanosis, or edema. No joint tenderness, effusion, or edema noted. No calf tenderness. Negative Homans sign bilaterally. Dressing over right hip C/D/I with moderate swelling and some bruising but not worst than in previous days. NEUROLOGICAL: Awake and alert. Cranial nerves II through XII intact. Motor and sensory grossly within normal limits. Five out of 5 muscle strength in all muscle groups. Normal speech. Procedures sp Right hip revision on 05/23 Medications and IVs Current Medications Medications (Trade) Dose Ordered Sig/Trina Route Start Time Stop Time Status Last Admin (Tylenol) 650 mg Q4H PRN PO 05/22/17 17:45 (Zofran Inj) 4 mg Q6H PRN IVP 05/22/17 17:45 (Narcan Inj) 0.4 mg UNSCH PRN IV PUSH 05/22/17 17:45 (Albertina-Colace) 1 tab BID PO 05/22/17 21:00 05/25/17 21:53 (Milk Of Magnesia Liq) 30 ml Q12H PRN PO 05/22/17 17:45 05/25/17 21:53 (Senokot) 17.2 mg Q12H PRN PO 05/22/17 17:45 (Dulcolax Supp) 10 mg DAILY PRN RECTAL 05/22/17 17:45 (Lactulose Liq) 30 ml DAILY PRN PO 05/22/17 17:45 (Tylenol) 650 mg Q4H PRN PO 05/22/17 17:45 05/22/17 18:42 (Benadryl) 25 mg Q4H PRN PO 05/22/17 17:45 05/24/17 21:25 (Ultram) 50 mg Q6H PRN PO 05/22/17 19:15 05/25/17 08:04 Lactated Ringer's 1,000 ml @ 30 mls/hr Q24H PRN IV 05/23/17 03:15 05/26/17 03:14 Sodium Chloride 500 ml @ 30 mls/hr [id number] PRN IV 05/23/17 03:15 05/26/17 03:14 (Lopressor) 25 mg MATERIALS TECHNICIAN PRN PO 05/23/17 03:15 05/26/17 03:14 (Betadine 5% Antisepsis Kit) 1 applic MATERIALS TECHNICIAN PRN EACH NARE 05/23/17 03:15 05/26/17 03:14 (Chlorhexidine 2% Cloth) 3 pack MATERIALS TECHNICIAN PRN TOPICAL 05/23/17 03:15 05/26/17 03:14 (NovoLIN R INJ) See Protocol Table ... MATERIALS TECHNICIAN PRN SQ 05/23/17 03:15 05/26/17 03:14 (NS Flush) 2 ml UNSCH PRN IVF 05/23/17 12:00 (NS Flush) 2 ml BID IVF 05/23/17 21:00 05/25/17 21:54 ([place] 7.5-325 Mg) 1 tab Q3H PRN PO 05/23/17 12:00 05/25/17 21:53 (Morphine Inj) 3 mg Q3H PRN IV PUSH 05/23/17 12:00 (Vitamin D3) 5,000 units DAILY PO 05/24/17 09:00 05/25/17 08:04 (Coumadin) 1 mg DAILY@1600 PO 05/23/17 16:00 05/25/17 16:24 (Cardizem Cd) 240 mg DAILY PO 05/24/17 09:00 05/25/17 08:05 (Lasix) 40 mg BID@0900,1600 PO 05/24/17 09:00 05/25/17 16:24 (Synthroid) 50 mcg DAILY@0600 PO 05/24/17 08:45 05/25/17 06:03 (Lexapro) 5 mg DAILY PO 05/24/17 09:00 05/25/17 08:04 (Pill Splitter) 1 ea UNSCH PRN OTHER 05/24/17 09:00 A/P Problem List: (1) Hip fracture, right ICD Code: S72.001A - Fracture of unspecified part of neck of right femur, initial encounter for closed fracture Plan: The patient was admitted to the orthopedic floor for revision of the right hip ORIF. Status post infusion of 1 unit of FFP and vitamin K administration with successful reversal of anti-correlation and INR down to 1.3. The patient underwent revision of the right hip 05/24 Pain control as per orthopedic surgery. (2) HTN (hypertension) ICD Code: I10 - Essential (primary) hypertension Status: Chronic Plan: Vital signs stable off antihypertensive medications. Continue to monitor for now. (3) COPD (chronic obstructive pulmonary disease) ICD Code: J44.9 - Chronic obstructive pulmonary disease, unspecified Status: Chronic Plan: Seems stable. Continue supplemental oxygen to keep an oxygen saturation more than 92%. (4) Dementia ICD Code: F03.90 - Unspecified dementia without behavioral disturbance Status: Chronic Plan: Seems to be stable. Patient not on any medications for this. (5) Hypothyroidism ICD Code: E03.9 - Hypothyroidism, unspecified Status: Chronic Plan: Continue Levothyroxine. (6) A-fib ICD Code: I48.91 - Unspecified atrial fibrillation Status: Chronic Plan: Rate controlled. Will resume Cardizem in am. INR subtherapeutic - Warfarin resumed, continue to monitor daily PT/INR (7) Fall ICD Code: W19.XXXA - Unspecified fall, initial encounter Status: Acute Plan: Continue PT as per orthopedic surgery recommendations. Assessment and Plan DVT prophylaxis: Patient resumed on Coumadin - Lovenox as per orthopedic surgery. Discharge Planning DC in am. Problem Qualifiers (1) HTN (hypertension): Qualified Codes: I10 - Essential (primary) hypertension (2) COPD (chronic obstructive pulmonary disease): Qualified Codes: J42 - Unspecified chronic bronchitis (3) Dementia: Qualified Codes: F03.90 - Unspecified dementia without behavioral disturbance (4) Fall: Qualified Codes: W19.XXXD - Unspecified fall, subsequent encounter Blayne Staton MD May 25, 2017 16:20
[2017-05-25] MEDS: WARFARIN SOD 1 MG TAB PO SCH (16:24)
[2017-05-25 19:00] VITALS: BP 119/59; PULSE 81; RESP 19; TEMP 99.1; O2SAT 93
[2017-05-25] MEDS: ACETAMINOPHEN/HYDROcodone 325 MG/7.5 MG TAB PO PRN (21:53)
[2017-05-25] MEDS: SODIUM CHLORIDE 0.9% FLUSH 5 ML FLUSH IVF SCH (21:54)
--- NOTE | 2017-05-25 22:18 | HHI.DCPOC ---
Discharge Care Plan Diagnosis: (1) Hip fracture, right (2) Fall (3) HTN (hypertension) (4) A-fib (5) Hypothyroidism (6) Dementia (7) COPD (chronic obstructive pulmonary disease) (8) Postoperative anemia due to acute blood loss (9) Impaired mobility and activities of daily living (10) Intertrochanteric fracture of right femur (11) Hypotension (12) Thrombocytopenia Goals to Promote Your Health * To prevent worsening of your condition and complications * To maintain your health at the optimal level Directions to Meet Your Goals Take your medications as prescribed Follow your dietary instruction Follow activity as directed Keep your appointments as scheduled Take your immunizations and boosters as scheduled If your symptoms worsen call your PCP, if no PCP go to Urgent Care Center or Emergency Room Smoking is Dangerous to Your Health. Avoid second hand smoke Call the 24-hour hour crisis hotline for domestic abuse at Blayne Staton MD May 25, 2017 22:18
[2017-05-26] VITALS: BP 109/54; PULSE 74; RESP 16; TEMP 98.4; O2SAT 95
[2017-05-26] MEDS: LEVOTHYROXINE SODIUM 50 MCG TAB PO SCH (06:01)
--- NOTE | 2017-05-26 06:41 | PD.ORT.PN ---
Subjective Subjective Remarks Still continues to plan about pain of right hip Objective Vitals Vital Signs Date Time Temp Pulse Resp B/P (MAP) Pulse Ox O2 Delivery O2 Flow Rate FiO2 05/26/17 00:00 98.4 74 16 109/54 (72) 95 05/25/17 19:00 99.1 81 19 119/59 (79) 93 05/25/17 16:00 98.3 73 17 124/58 (80) 94 05/25/17 11:30 98.2 95 17 120/60 (80) 96 05/25/17 07:45 98.5 87 17 115/59 (77) 95 I/O 05/25/17 05/25/17 05/25/17 05/26/17 05/26/17 05/26/17 06:59 14:59 22:59 06:59 14:59 22:59 Intake Total 900 ml 480 ml Balance 900 ml 480 ml Intake Oral 900 ml 480 ml # Voids 5 3 # Bowel Movements 0 0 Result Diagram: 05/25/17 0758 05/25/17 0758 Other Results Laboratory Tests Test 05/25/17 07:58 Prothromb Time International Ratio 1.0 RATIO Prothrombin Time 11.1 SEC (9.8-11.6) Objective Remarks Laying in bed NAD VSS RLE Hip and knee dressings c/d/i, mild swelling and warmth, no erythema Some tenderness with palpation at surgical incisions, thigh supple +motor at, +sens, +nvi, neg homans Assessment & Plan Assessment and Plan pod#3 s/p revision reduction and intramedullary nail fixation right femur She continues to be ortho stable. Ok to d/c back to [facility] today if med stable. PT - Toe-touch weightbearing RLE. Lovenox/ Coumadin - INR not done yet today despite order being placed. Daily dressing changes with Primapore and Xeroform. D/C planning, likely SNF today. Follow-up with Dr. Weiss or PA in 2 weeks Juice Suresh Jr. May 26, 2017 06:41
[2017-05-26 07:27] VITALS: BP 110/58; PULSE 82; RESP 16; TEMP 97.2; O2SAT 97
[2017-05-26 07:44] LABS: PROTHROMBIN TIME - PATIENT 11.2 SEC (9.8-11.6)
[2017-05-26] MEDS: SODIUM CHLORIDE 0.9% FLUSH 5 ML FLUSH IVF SCH (09:00)
[2017-05-26] MEDS: DILTIAZEM-CD 240 MG CAP ER PO SCH (09:23)
[2017-05-26] MEDS: ESCITALOPRAM OXALATE 10 MG TAB PO SCH (09:23)
[2017-05-26] MEDS: DOCUSATE SODIUM 50 MG/SENNA 8.6 MG TAB PO SCH (09:23)
[2017-05-26] MEDS: CHOLECALCIFEROL (VIT D3) 5000 UNIT CAP PO SCH (09:23)
[2017-05-26] MEDS: FUROSEMIDE 40 MG TAB PO SCH (09:26)
[2017-05-26] MEDS ORDERED: ULTR50TA5 PO (10:51)
--- NOTE | 2017-05-26 10:53 | HHI.DS ---
Discharge Summary Admission Date May 22, 2017 at 16:42 Discharge Date: May 26, 2017 Admitting Diagnosis (1) Hip fracture, right ICD Code: S72.001A - Fracture of unspecified part of neck of right femur, initial encounter for closed fracture (2) HTN (hypertension) ICD Code: I10 - Essential (primary) hypertension Status: Chronic (3) COPD (chronic obstructive pulmonary disease) ICD Code: J44.9 - Chronic obstructive pulmonary disease, unspecified Status: Chronic (4) Dementia ICD Code: F03.90 - Unspecified dementia without behavioral disturbance Status: Chronic (5) Hypothyroidism ICD Code: E03.9 - Hypothyroidism, unspecified Status: Chronic (6) A-fib ICD Code: I48.91 - Unspecified atrial fibrillation Status: Chronic (7) Fall ICD Code: W19.XXXA - Unspecified fall, initial encounter Status: Acute Procedures sp Right hip revision on 05/23 Brief History - From Admission This is an 87-year-old female with past medical history as detailed below and very well-known to me who recently was admitted to [facility] for right hip fracture after a mechanical trip and fall. The patient underwent right hip open reduction internal fixation. The patient was then discharged to [place] [facility] for further rehabilitation needs. During the patient's stay in rehabilitation was noted that her right hip had increased pain and swelling as well as some bruising. A hip for suspected pelvic x-ray was ordered and it showed a device on the right hip was going through the head of the femur and projected just last articular surface in the joint space. A CT of the right hip confirmed the findings. The case was discussed extensively with [facility], who stated that he spoke to orthopedic surgery and that they wanted the patient to be transferred to the hospital for revision of the right hip in a.m. The patient denies any chest pain, shortness of breath, has some pain in the right hip with this is most evident when she bears weight over it. Patient also denies cough, diarrhea, nausea, vomiting or abdominal pain. CBC/BMP: 05/25/17 0758 05/25/17 0758 Significant Findings Laboratory Tests Test 05/24/17 05:28 05/25/17 07:58 05/26/17 07:03 Hemoglobin 9.6 GM/DL (11.6-15.3) 9.5 GM/DL (11.6-15.3) Hematocrit 29.9 % (35.0-46.0) 29.7 % (35.0-46.0) Red Blood Count 3.03 MIL/MM3 (4.00-5.30) Neutrophils (%) (Auto) 78.5 % (16.0-70.0) Lymphocytes (%) (Auto) 8.5 % (9.0-44.0) Monocytes (%) (Auto) 11.2 % (0.0-8.0) Lymphocytes # (Auto) 0.7 TH/MM3 (1.0-4.8) Creatinine 0.44 MG/DL (0.50-1.00) Total Protein 5.5 GM/DL (6.4-8.2) Albumin 2.4 GM/DL (3.4-5.0) Calcium Level 8.3 MG/DL (8.5-10.1) Imaging Last Impressions Hip X-Ray 05/23/17 0000 Signed Impressions: Service Date/Time: Tuesday, May 23, 2017 11:44 - CONCLUSION: Anatomic alignment. Cyrus Shoemaker MD FACR PE at Discharge GENERAL: This is a well-nourished, well-developed patient, in no apparent distress. SKIN: No rashes, ecchymoses or lesions. Cool and dry. HEAD: Atraumatic. Normocephalic. No temporal or scalp tenderness. EYES: Pupils equal round and reactive. Extraocular motions intact. No scleral icterus. No injection or drainage. ENT: Nose without bleeding, purulent drainage or septal hematoma. Throat without erythema, tonsillar hypertrophy or exudate. Uvula midline. Airway patent. NECK: Trachea midline. No JVD or lymphadenopathy. Supple, nontender, no meningeal signs. CARDIOVASCULAR: Regular rate and rhythm without murmurs, gallops, or rubs. RESPIRATORY: Clear to auscultation. Breath sounds equal bilaterally. No wheezes , rales, or rhonchi. GASTROINTESTINAL: Abdomen soft, non-tender, nondistended. No hepato-splenomegaly , or palpable masses. No guarding. MUSCULOSKELETAL: Extremities without clubbing, cyanosis, or edema. No joint tenderness, effusion, or edema noted. No calf tenderness. Negative Homans sign bilaterally. Dressing over right hip C/D/I with moderate swelling and some bruising but not worst than in previous days. NEUROLOGICAL: Awake and alert. Cranial nerves II through XII intact. Motor and sensory grossly within normal limits. Five out of 5 muscle strength in all muscle groups. Normal speech. Pt Condition on Discharge: Stable Discharge Disposition: Discharge to SNF Discharge Time: > 30 minutes Discharge Instructions DIET: Follow Instructions for: Diabetic Diet Activities you can perform: See Additionl Instruction Other Activity Instructions: PT - Toe-touch weightbearing RLE. Follow up Referrals: Orthopedics - 1 Week PCP Follow-up - 2 Weeks Changed Medications: Tramadol (Ultram) 50 Mg Tab 50 MG PO Q6H PRN for PAIN SCALE 1 TO 10, #30 TAB (Changed from: 1) Continued Medications: Bethanechol (Urecholine) 10 Mg Tab 5 MG PO Q12HR for 1 Day, TAB Diltiazem CD 24 HR (Diltiazem CD 24 HR) 240 Mg Caper 240 MG PO DAILY for 1 Day, CAP 0 Refills Hold if SBP < 110 or HR < 60 Escitalopram (Escitalopram) 5 Mg Tab 5 MG PO DAILY for 1 Day, TAB 0 Refills Famotidine (Famotidine) 20 Mg Tab 10 MG PO BID for 1 Day, TAB Furosemide (Furosemide) 40 Mg Tab 40 MG PO BID@0900,1600 for 1 Day, TAB Ipratropium-Albuterol Neb (Duoneb) 0.5-2.5 Mg/3 Ml Neb 1 AMPULE NEB Q4HR NEB PRN for wheezing for 1 Day, ML Ketorolac (Ketorolac) 10 Mg Tab 10 MG PO Q6HR PRN for PAIN, #20 TAB 0 Refills Levothyroxine (Synthroid) 50 Mcg Tab 50 MCG PO DAILY@0600 for 1 Day, #1 TAB Propafenone (Propafenone) 225 Mg Tab 225 MG PO BID for Regulate Heart Beat for 30 Days, TAB 0 Refills Warfarin (Coumadin) 1 Mg Tab 1 MG PO DAILY@1600 for Blood Clot Prevention, #30 TAB Discontinued Medications: Hydrocodone-Acetaminophen ([place]) 5-325 mg Tab 1 TAB PO Q4H PRN for PAIN, #50 TAB 0 Refills Metoprolol Tartrate (Metoprolol Tartrate) 25 Mg Tab 25 MG PO DAILY for Blood Pressure Management, #30 TAB 0 Refills Hold if SBP <110 or HR < 60 Metoprolol Tartrate (Metoprolol Tartrate) 25 Mg Tab 12.5 MG PO DAILY for 1 Day, TAB Blayne Staton MD May 26, 2017 10:53
[2017-05-26 11:40] VITALS: BP 103/64; PULSE 84; RESP 16; TEMP 98; O2SAT 97
== END 2017-05-26 14:45 | DRG 482 ==
LOC: N06A 16:42
PROVIDERS: ADMIT Hospitalist; ATTEND Hospitalist
PROC: 0SP Lower Joints, Removal (ICD-10-PCS; principal; 2017-05-22)
PROC: 0QS604Z Reposition Right Upper Femur with Internal Fixation Device, Open Approach (ICD-10-PCS; 2017-05-22)
DX: S72.141A Displaced intertrochanteric fracture of right femur, initial encounter for closed fracture (principal); J44.9 Chronic obstructive pulmonary disease, unspecified; I48.91 Unspecified atrial fibrillation; F03.90 Unspecified dementia, unspecified severity, without behavioral disturbance, psychotic disturbance, mood disturbance, and anxiety; I10 Essential (primary) hypertension; E03.9 Hypothyroidism, unspecified; W01.0XXA Fall on same level from slipping, tripping and stumbling without subsequent striking against object, initial encounter; Y92.9 Unspecified place or not applicable; H91.90 Unspecified hearing loss, unspecified ear; Z79.01 Long term (current) use of anticoagulants
CPT/HCPCS: 36430; 73502; 76000; 80053; 82306; 85014; 85018; 85025; 85610; 86927; 93005; C1713; J0690; J1100; J1580; J1644; J1650; J1940; J2270; J2370; J2405; J2710; J3010; J3370; J3430; J7050; J7120; P9017